=== PATIENT | female | born 1950 | race Caucasian/White ===

== ENCOUNTER → 2016-08-06 | Outpatient (CLI) | payer MEDICARE, MEDICAID ==
[~2016-08-06] MED LIST: ACCUNEB 0.0.63 MG/3 INH; AMOXIL500 MG PO; ASMANEX220 MCG INH; ASTELIN137 MCG/AC NAS; ATENOLOL50 MG PO; CAPOTEN25 MG PO; CEFTIN500 MG PO; CIPRO500 MG PO; CLARITIN10 MG PO; COUMADIN5 MG PO; FERROUS SULFAT325 M1 PO; FISH; FLAGYL500 MG PO; FLAX SEED OIL; Feosol300 MG PO; JANTOVEN3 MG PO; LOTEMAX 0.5% 1010 ML OPH; LOVASTATIN20 MG PO; MACROBID100 M1 PO; MEDROL DOSEPAK4 MG PO; MEVACOR20 MG PO; MOTRIN800 MG PO; NIACIN ER500 MG PO; PANTOPRAZOLE40 M1 PO; PRAVACHOL20 MG PO; PREDNISONE20 MG PO; PROAIR HFA0.09 MG/AC IH; PROAIR HFA0.09 MG/AC INH; PROCRIT20000 U/ML IJ; PROTONIX40 MG PO; PYRIDIUM200 MG PO; ROBITUSSIN AC 10 MG/ PO; ROBITUSSIN-AC480 ML PO; SYNTHROID,LEVO75 MCG PO; SYNTHROID0.075 MG PO; SYSTANE LUBRICAN5 ML OPH; TRILIPIX45 M1 PO; TYLENOL ARTHRI650 MG PO; VITAMIN C; VITAMIN D1000 IU PO; VITAMIN E400 I1 PO; Ventolin 02.5 MG/3 M INH; [UNRECOGNIZED DRUG - OTHER] OP
== END | disposition home or self-care (01) ==
LOC: CT 10:13
DX: R91.1 Solitary pulmonary nodule (principal); R06.02 Shortness of breath; Z87.891 Personal history of nicotine dependence; J44.9 Chronic obstructive pulmonary disease, unspecified

== ENCOUNTER → 2016-11-17 | Outpatient (CLI) | payer MEDICARE, MEDICAID ==
[2016-11-17 11:16] LABS: BASO % 0.6 % (0.0-1.0); HEMATOCRIT 29.5 % (37.0-47.0); HEMOGLOBIN 9.4 g/dl (12.0-16.0); LYMPH # 1.5 10*3/uL (1.3-4.4); LYMPH % 48.6 % (27.0-41.0); MEAN CELL VOLUME 90.8 fl (81.0-99.0); MEAN CORPUSCULAR HGB 28.9 pg (27.0-31.0); MEAN CORPUSCULAR HGB CONC 31.9 g/dl (33.0-37.0); MEAN PLATELET VOLUME 9.3 fl (9.6-12.3); MONO # 0.5 10*3/uL (0.1-1.0); MONO % 15.4 % (3.0-9.0); NEUT # 1.1 10*3/uL (2.3-7.9); NEUT % 35.4 % (47.0-73.0); PLATELET COUNT AUTOMATED 153 10*3/uL (130-400); RED BLOOD COUNT 3.25 10*6/uL (4.10-5.10); RED CELL DISTRI WIDTH 14.5 % (0-14.5); WHITE BLOOD COUNT 3.1 10*3/uL (4.8-10.8)
== END | disposition home or self-care (01) ==
LOC: LAB 10:39
PROVIDERS: Internal Medicine Hematology & Oncology
DX: D70.9 Neutropenia, unspecified (principal); D63.1 Anemia in chronic kidney disease

== ENCOUNTER → 2016-11-24 | Outpatient (CLI) | payer MEDICARE, MEDICAID ==
[2016-11-25 09:14] LABS: IMMUNOGLOBULIN IgE 002170 1 IU/mL (0-100)
== END | disposition home or self-care (01) ==
LOC: LAB 11:49
PROVIDERS: Internal Medicine Hematology & Oncology
DX: D83.8 Other common variable immunodeficiencies (principal)

== ENCOUNTER → 2016-12-09 | Outpatient (CLI) | payer MEDICARE, MEDICAID ==
[2016-12-09 09:07] LABS: BASO % 0.3 % (0.0-1.0); EOS % 0.3 % (1.0-4.0); HEMATOCRIT 30.4 % (37.0-47.0); HEMOGLOBIN 9.6 g/dl (12.0-16.0); LYMPH # 1.5 10*3/uL (1.3-4.4); LYMPH % 44.2 % (27.0-41.0); MEAN CELL VOLUME 89.9 fl (81.0-99.0); MEAN CORPUSCULAR HGB 28.4 pg (27.0-31.0); MEAN CORPUSCULAR HGB CONC 31.6 g/dl (33.0-37.0); MEAN PLATELET VOLUME 9.2 fl (9.6-12.3); MONO # 0.5 10*3/uL (0.1-1.0); MONO % 14.8 % (3.0-9.0); NEUT # 1.4 10*3/uL (2.3-7.9); NEUT % 40.1 % (47.0-73.0); PLATELET COUNT AUTOMATED 155 10*3/uL (130-400); RED BLOOD COUNT 3.38 10*6/uL (4.10-5.10); RED CELL DISTRI WIDTH 14.3 % (0-14.5); WHITE BLOOD COUNT 3.4 10*3/uL (4.8-10.8)
== END | disposition home or self-care (01) ==
LOC: LAB 08:55
PROVIDERS: Internal Medicine Hematology & Oncology
DX: D70.9 Neutropenia, unspecified (principal); D63.1 Anemia in chronic kidney disease

== ENCOUNTER → 2016-12-17 | Outpatient (CLI) | payer MEDICARE, MEDICAID ==
[2016-12-17 10:54] LABS: ALBUMIN 3.7 gm/dl (3.1-4.5); BILIRUBIN, TOTAL 0.2 mg/dl (0.2-1.0); MAGNESIUM 1.8 mg/dL (1.5-2.1); PHOSPHOROUS 3.2 mg/dL (2.5-4.9); POTASSIUM 4.4 mmol/L (3.5-5.1); TOTAL PROTEIN 8.9 gm/dL (6.4-8.2)
[2016-12-17 11:16] LABS: PTH INTACT 16.6 pg/mL (14.0-72.0); VITAMIN D, 25-HYDROXY 34.3 ng/mL (30-100)
[2016-12-17 11:18] LABS: URINE TP/CRE RATIO 0.2 (<0.21)
== END | disposition home or self-care (01) ==
LOC: LAB 09:59
PROVIDERS: Internal Medicine Nephrology
DX: I12.9 Hypertensive chronic kidney disease with stage 1 through stage 4 chronic kidney disease, or unspecified chronic kidney disease (principal); N18.3 Chronic kidney disease, stage 3 (moderate); E83.50 Unspecified disorder of calcium metabolism; D63.1 Anemia in chronic kidney disease; E83.30 Disorder of phosphorus metabolism, unspecified

== ENCOUNTER → 2017-01-02 | Outpatient (CLI) | payer MEDICARE, MEDICAID ==
[2017-01-02 10:43] LABS: BILIRUBIN NEGATIVE (NEGATIVE); BLOOD NEGATIVE (NEGATIVE); CLARITY CLEAR (CLEAR); COLOR YELLOW (YELLOW); GLUCOSE NEGATIVE (NEGATIVE); KETONE NEGATIVE (NEGATIVE); LEUKO ESTERASE TRACE (NEGATIVE); NITRITE NEGATIVE (NEGATIVE); PROTEIN NEGATIVE (NEGATIVE); UROBILINOGEN 0.2 E.U./dl (0.2-1.0)
[2017-01-02 11:11] LABS: BACTERIA 1+
== END | disposition home or self-care (01) ==
LOC: LAB 10:16
PROVIDERS: Internal Medicine Nephrology
DX: I12.9 Hypertensive chronic kidney disease with stage 1 through stage 4 chronic kidney disease, or unspecified chronic kidney disease (principal); N18.3 Chronic kidney disease, stage 3 (moderate); E21.1 Secondary hyperparathyroidism, not elsewhere classified; D63.1 Anemia in chronic kidney disease; Z79.899 Other long term (current) drug therapy

== ENCOUNTER 2017-01-23 18:03 | Emergency (ER) | payer MEDICARE, MEDICAID ==
[~2017-01-23] VITALS: Ht 149.8 cm; Wt 74.8 kg
[2017-01-23 19:38] LABS: BASO % 0.2 % (0.0-1.0); HEMATOCRIT 28.2 % (37.0-47.0); LYMPH % 16.5 % (27.0-41.0); MEAN CELL VOLUME 88.4 fl (81.0-99.0); MEAN CORPUSCULAR HGB 28.2 pg (27.0-31.0); MEAN CORPUSCULAR HGB CONC 31.9 g/dl (33.0-37.0); MEAN PLATELET VOLUME 8.5 fl (9.6-12.3); MONO # 0.6 10*3/uL (0.1-1.0); MONO % 10.1 % (3.0-9.0); NEUT # 4.6 10*3/uL (2.3-7.9); NEUT % 72.7 % (47.0-73.0); PLATELET COUNT AUTOMATED 152 10*3/uL (130-400); RED BLOOD COUNT 3.19 10*6/uL (4.10-5.10); RED CELL DISTRI WIDTH 13.7 % (0-14.5); WHITE BLOOD COUNT 6.3 10*3/uL (4.8-10.8)
[2017-01-23 19:55] LABS: ALBUMIN 3.3 gm/dl (3.1-4.5); BILIRUBIN, TOTAL 0.3 mg/dl (0.2-1.0); C-REACTIVE PROTEIN 15.2 MG/DL (0-0.3); TOTAL PROTEIN 8.8 gm/dL (6.4-8.2)
[2017-01-23 21:31] LABS: BILIRUBIN NEGATIVE (NEGATIVE); BLOOD NEGATIVE (NEGATIVE); CLARITY CLEAR (CLEAR); COLOR YELLOW (YELLOW); GLUCOSE NEGATIVE (NEGATIVE); KETONE NEGATIVE (NEGATIVE); LEUKO ESTERASE NEGATIVE (NEGATIVE); NITRITE NEGATIVE (NEGATIVE); PH 5.5 (5.0-9.0); PROTEIN NEGATIVE (NEGATIVE); UROBILINOGEN 0.2 E.U./dl (0.2-1.0)
[2017-01-23 21:40] LABS: BACTERIA 1+; URINE REFLEX COMMENT NO (NO)
[2017-01-23] MEDS ORDERED: Augmentin Xr 101 TER PO (22:07)
== END 2017-01-23 22:39 | disposition home or self-care (01) ==
LOC: ED 18:03
PROVIDERS: Physician Assistant
DX: K57.92 Diverticulitis of intestine, part unspecified, without perforation or abscess without bleeding (principal); Z88.1 Allergy status to other antibiotic agents; Z88.6 Allergy status to analgesic agent; Z79.01 Long term (current) use of anticoagulants; Z79.899 Other long term (current) drug therapy

== ENCOUNTER → 2017-02-04 | Outpatient (CLI) | payer MEDICARE, MEDICAID ==
[~2017-02-04] MED LIST changes: +Augmentin Xr 101 TER PO
== END | disposition home or self-care (01) ==
LOC: CT 02-03 11:00
DX: R91.8 Other nonspecific abnormal finding of lung field (principal)

== ENCOUNTER → 2017-03-03 | Outpatient (CLI) | payer MEDICARE, MEDICAID ==
[2017-03-03 09:32] LABS: BASO % 0.7 % (0.0-1.0); HEMATOCRIT 30.1 % (37.0-47.0); HEMOGLOBIN 9.2 g/dl (12.0-16.0); LYMPH # 1.5 10*3/uL (1.3-4.4); LYMPH % 48.5 % (27.0-41.0); MEAN CELL VOLUME 90.7 fl (81.0-99.0); MEAN CORPUSCULAR HGB 27.7 pg (27.0-31.0); MEAN CORPUSCULAR HGB CONC 30.6 g/dl (33.0-37.0); MEAN PLATELET VOLUME 9.1 fl (9.6-12.3); MONO # 0.4 10*3/uL (0.1-1.0); NEUT # 1.1 10*3/uL (2.3-7.9); NEUT % 35.5 % (47.0-73.0); PLATELET COUNT AUTOMATED 150 10*3/uL (130-400); RED BLOOD COUNT 3.32 10*6/uL (4.10-5.10); RED CELL DISTRI WIDTH 14.9 % (0-14.5); WHITE BLOOD COUNT 3.1 10*3/uL (4.8-10.8)
== END | disposition home or self-care (01) ==
LOC: LAB 09:08
PROVIDERS: Internal Medicine Hematology & Oncology
DX: D83.8 Other common variable immunodeficiencies (principal)

== ENCOUNTER 2017-03-09 21:11 | Emergency (ER) | payer MEDICARE, MEDICAID ==
[~2017-03-09] VITALS: Ht 160 cm
== END 2017-03-09 22:50 | disposition home or self-care (01) ==
LOC: ED 21:11
DX: M25.561 Pain in right knee (principal); Z88.1 Allergy status to other antibiotic agents; Z88.6 Allergy status to analgesic agent; Z79.899 Other long term (current) drug therapy; Z79.02 Long term (current) use of antithrombotics/antiplatelets

== ENCOUNTER → 2017-04-16 | Outpatient (CLI) | payer MEDICARE, MEDICAID ==
[2017-04-16 09:14] LABS: BILIRUBIN NEGATIVE (NEGATIVE); BLOOD NEGATIVE (NEGATIVE); CLARITY CLEAR (CLEAR); COLOR YELLOW (YELLOW); GLUCOSE NEGATIVE (NEGATIVE); KETONE NEGATIVE (NEGATIVE); LEUKO ESTERASE 1+ (NEGATIVE); NITRITE NEGATIVE (NEGATIVE); UROBILINOGEN 0.2 E.U./dl (0.2-1.0)
[2017-04-16 09:19] LABS: HEMATOCRIT 30.3 % (37.0-47.0); HEMOGLOBIN 9.6 g/dl (12.0-16.0); MEAN CELL VOLUME 91.5 fl (81.0-99.0); MEAN CORPUSCULAR HGB CONC 31.7 g/dl (33.0-37.0); PLATELET COUNT AUTOMATED 207 10*3/uL (130-400); RED BLOOD COUNT 3.31 10*6/uL (4.10-5.10); WHITE BLOOD COUNT 2.7 10*3/uL (4.8-10.8)
[2017-04-16 09:25] LABS: EPITHELIAL CELLS 0-2; WBC 0-2 wbc/hpf (0-5)
[2017-04-16 09:35] LABS: ALBUMIN 3.7 gm/dl (3.1-4.5); CREATININE 1.7 mg/dL (0.55-1.02); POTASSIUM 3.9 mmol/L (3.5-5.1); TOTAL PROTEIN 8.2 gm/dL (6.4-8.2)
[2017-04-16 09:44] LABS: TOTAL CELLS COUNTED 100 #CELLS
[2017-04-16 09:45] LABS: PLATELET SUFFICIENCY NORMAL (NORMAL)
[2017-04-17 08:15] LABS: COMPLEMENT C4 001834 25 mg/dL (14-44)
[2017-04-17 14:11] LABS: ANTI-DSDNA ANTIBODIES 096339 <1 IU/mL (0-9)
== END | disposition home or self-care (01) ==
LOC: LAB 08:20
PROVIDERS: Internal Medicine Rheumatology
DX: M35.00 Sjogren syndrome, unspecified (principal)

== ENCOUNTER → 2017-05-08 | Outpatient (CLI) | payer MEDICARE, MEDICAID ==
[2017-05-08 10:51] LABS: BASO % 0.9 % (0.0-1.0); EOS # 0.1 10*3/uL (0.0-0.4); EOS % 2.5 % (1.0-4.0); HEMATOCRIT 31.3 % (37.0-47.0); HEMOGLOBIN 9.9 g/dl (12.0-16.0); LYMPH # 1.3 10*3/uL (1.3-4.4); MEAN CELL VOLUME 89.9 fl (81.0-99.0); MEAN CORPUSCULAR HGB 28.4 pg (27.0-31.0); MEAN CORPUSCULAR HGB CONC 31.6 g/dl (33.0-37.0); MEAN PLATELET VOLUME 9.1 fl (9.6-12.3); MONO # 0.4 10*3/uL (0.1-1.0); MONO % 13.4 % (3.0-9.0); NEUT # 1.4 10*3/uL (2.3-7.9); NEUT % 41.9 % (47.0-73.0); PLATELET COUNT AUTOMATED 213 10*3/uL (130-400); RED BLOOD COUNT 3.48 10*6/uL (4.10-5.10); RED CELL DISTRI WIDTH 15.1 % (0-14.5); WHITE BLOOD COUNT 3.2 10*3/uL (4.8-10.8)
[2017-05-08 11:05] LABS: ALBUMIN 3.8 gm/dl (3.1-4.5); CREATININE 1.46 mg/dL (0.55-1.02); POTASSIUM 4.3 mmol/L (3.5-5.1)
== END | disposition home or self-care (01) ==
LOC: LAB 10:24
PROVIDERS: Internal Medicine
DX: E78.2 Mixed hyperlipidemia (principal); E03.9 Hypothyroidism, unspecified; E55.9 Vitamin D deficiency, unspecified

== ENCOUNTER → 2017-06-09 | Outpatient (CLI) | payer MEDICARE, MEDICAID ==
[2017-06-09 12:16] LABS: BASO % 1.1 % (0.0-1.0); EOS # 0.1 10*3/uL (0.0-0.4); EOS % 3.4 % (1.0-4.0); HEMATOCRIT 31.9 % (37.0-47.0); HEMOGLOBIN 9.8 g/dl (12.0-16.0); LYMPH # 1.7 10*3/uL (1.3-4.4); LYMPH % 48.6 % (27.0-41.0); MEAN CELL VOLUME 90.9 fl (81.0-99.0); MEAN CORPUSCULAR HGB 27.9 pg (27.0-31.0); MEAN CORPUSCULAR HGB CONC 30.7 g/dl (33.0-37.0); MEAN PLATELET VOLUME 8.8 fl (9.6-12.3); MONO # 0.5 10*3/uL (0.1-1.0); NEUT # 1.2 10*3/uL (2.3-7.9); NEUT % 32.9 % (47.0-73.0); PLATELET COUNT AUTOMATED 191 10*3/uL (130-400); RED BLOOD COUNT 3.51 10*6/uL (4.10-5.10); RED CELL DISTRI WIDTH 14.8 % (0-14.5); WHITE BLOOD COUNT 3.6 10*3/uL (4.8-10.8)
== END ==
LOC: LAB 11:58
PROVIDERS: Internal Medicine Hematology & Oncology
DX: D70.9 Neutropenia, unspecified (principal)

== ENCOUNTER → 2017-06-19 | Outpatient (CLI) | payer MEDICARE, MEDICAID ==
[2017-06-19 10:36] LABS: URINE CREATININE RANDOM 42.8 mg/dL
[2017-06-19 10:57] LABS: ALBUMIN 3.6 gm/dl (3.1-4.5); CREATININE 1.51 mg/dL (0.55-1.02); PHOSPHOROUS 3.6 mg/dL (2.5-4.9); POTASSIUM 4.1 mmol/L (3.5-5.1); TOTAL PROTEIN 8.4 gm/dL (6.4-8.2)
[2017-06-19 12:34] LABS: VITAMIN D, 25-HYDROXY 34.1 ng/mL (30-100)
[2017-06-19 12:35] LABS: PTH INTACT 14.3 pg/mL (14.0-72.0)
[2017-06-20 06:10] LABS: TOTAL PROTEIN, SERUM 7.7 g/dL (6.0-8.5)
== END | disposition home or self-care (01) ==
LOC: LAB 09:47
PROVIDERS: Internal Medicine Nephrology
DX: I12.9 Hypertensive chronic kidney disease with stage 1 through stage 4 chronic kidney disease, or unspecified chronic kidney disease (principal); N18.3 Chronic kidney disease, stage 3 (moderate); E21.1 Secondary hyperparathyroidism, not elsewhere classified; D63.1 Anemia in chronic kidney disease

== ENCOUNTER → 2017-07-09 | Outpatient (CLI) | payer MEDICARE, MEDICAID | END | disposition home or self-care (01) | LOC: ORTHO 01:49 | DX: S89.81XD Other specified injuries of right lower leg, subsequent encounter (principal); X58.XXXD Exposure to other specified factors, subsequent encounter ==

== ENCOUNTER → 2017-08-06 | Outpatient (CLI) | payer MEDICARE, MEDICAID | END | disposition home or self-care (01) | LOC: CT 09:45 | DX: R91.1 Solitary pulmonary nodule (principal) ==

== ENCOUNTER → 2017-08-19 | Outpatient (CLI) | payer MEDICARE, MEDICAID ==
[2017-08-19 12:52] LABS: HEMATOCRIT 31.5 % (37.0-47.0); HEMOGLOBIN 9.9 g/dl (12.0-16.0); LYMPH # 1.8 10*3/uL (1.3-4.4); LYMPH % 23.9 % (27.0-41.0); MEAN CELL VOLUME 91.3 fl (81.0-99.0); MEAN CORPUSCULAR HGB 28.7 pg (27.0-31.0); MEAN CORPUSCULAR HGB CONC 31.4 g/dl (33.0-37.0); MEAN PLATELET VOLUME 9.3 fl (9.6-12.3); MONO # 0.9 10*3/uL (0.1-1.0); MONO % 11.3 % (3.0-9.0); NEUT # 4.8 10*3/uL (2.3-7.9); NEUT % 64.3 % (47.0-73.0); PLATELET COUNT AUTOMATED 264 10*3/uL (130-400); RED BLOOD COUNT 3.45 10*6/uL (4.10-5.10); RED CELL DISTRI WIDTH 15.9 % (0-14.5); WHITE BLOOD COUNT 7.5 10*3/uL (4.8-10.8)
[2017-08-19 12:57] LABS: ALBUMIN 3.8 gm/dl (3.1-4.5); ALKALINE PHOSPHATASE 35 U/L (45-117); BUN 36 mg/dl (7-24); CHLORIDE 109 mmol/L (98-107); CREATININE 1.64 mg/dL (0.55-1.02); POTASSIUM 4.1 mmol/L (3.5-5.1); SGOT/AST 14 IU/L (3-35); SGPT/ALT 24 U/L (12-78); SODIUM 140 mmol/L (136-145); TOTAL PROTEIN 7.8 gm/dL (6.4-8.2)
[2017-08-20 08:13] LABS: COMPLEMENT C4 001834 19 mg/dL (14-44)
[2017-08-20 11:04] LABS: ANTI-DSDNA ANTIBODIES 096339 <1 IU/mL (0-9)
== END | disposition home or self-care (01) ==
LOC: LAB 12:04
PROVIDERS: Internal Medicine Rheumatology
DX: M35.00 Sjogren syndrome, unspecified (principal)

== ENCOUNTER → 2017-09-08 | Outpatient (CLI) | payer MEDICARE, MEDICAID ==
[2017-09-08 12:25] LABS: EOS # 0.1 10*3/uL (0.0-0.4); EOS % 3.4 % (1.0-4.0); HEMATOCRIT 30.5 % (37.0-47.0); HEMOGLOBIN 9.7 g/dl (12.0-16.0); LYMPH # 1.4 10*3/uL (1.3-4.4); LYMPH % 45.5 % (27.0-41.0); MEAN CELL VOLUME 91.6 fl (81.0-99.0); MEAN CORPUSCULAR HGB 29.1 pg (27.0-31.0); MEAN CORPUSCULAR HGB CONC 31.8 g/dl (33.0-37.0); MEAN PLATELET VOLUME 9.4 fl (9.6-12.3); MONO # 0.5 10*3/uL (0.1-1.0); MONO % 15.2 % (3.0-9.0); NEUT % 34.6 % (47.0-73.0); PLATELET COUNT AUTOMATED 219 10*3/uL (130-400); RED BLOOD COUNT 3.33 10*6/uL (4.10-5.10); RED CELL DISTRI WIDTH 14.6 % (0-14.5)
== END | disposition home or self-care (01) ==
LOC: LAB 11:46
PROVIDERS: Internal Medicine Hematology & Oncology
DX: D70.9 Neutropenia, unspecified (principal); D63.1 Anemia in chronic kidney disease

== ENCOUNTER → 2017-09-17 | Outpatient (CLI) | payer MEDICARE, MEDICAID | END | disposition home or self-care (01) | LOC: MAMMO 10:02 | DX: Z12.31 Encounter for screening mammogram for malignant neoplasm of breast (principal) ==

== ENCOUNTER → 2017-12-07 | Outpatient (CLI) | payer OTHER ==
[2017-12-07 11:29] LABS: EOS # 0.1 10*3/uL (0.0-0.4); EOS % 3.6 % (1.0-4.0); HEMATOCRIT 31.1 % (37.0-47.0); LYMPH # 1.3 10*3/uL (1.3-4.4); MEAN CELL VOLUME 87.9 fl (81.0-99.0); MEAN CORPUSCULAR HGB 28.2 pg (27.0-31.0); MEAN CORPUSCULAR HGB CONC 32.2 g/dl (33.0-37.0); MEAN PLATELET VOLUME 9.7 fl (9.6-12.3); MONO # 0.5 10*3/uL (0.1-1.0); MONO % 15.3 % (3.0-9.0); NEUT # 1.2 10*3/uL (2.3-7.9); NEUT % 39.1 % (47.0-73.0); PLATELET COUNT AUTOMATED 188 10*3/uL (130-400); RED BLOOD COUNT 3.54 10*6/uL (4.10-5.10); RED CELL DISTRI WIDTH 15.4 % (0-14.5); WHITE BLOOD COUNT 3.1 10*3/uL (4.8-10.8)
[2017-12-07 13:45] LABS: ALBUMIN 3.6 gm/dl (3.1-4.5); CREATININE 1.18 mg/dL (0.55-1.02); POTASSIUM 4.2 mmol/L (3.5-5.1); TOTAL PROTEIN 8.2 gm/dL (6.4-8.2)
[2017-12-07 14:03] LABS: VITAMIN D, 25-HYDROXY 45.4 ng/mL (30-100)
== END | disposition home or self-care (01) ==
LOC: LAB 11:05
PROVIDERS: Internal Medicine
DX: E78.2 Mixed hyperlipidemia (principal); N18.4 Chronic kidney disease, stage 4 (severe); E53.8 Deficiency of other specified B group vitamins; E03.9 Hypothyroidism, unspecified

== ENCOUNTER → 2017-12-23 | Outpatient (CLI) | payer OTHER ==
[2017-12-23 12:18] LABS: ALBUMIN 3.7 gm/dl (3.1-4.5); CREATININE 1.31 mg/dL (0.55-1.02); PHOSPHOROUS 2.9 mg/dL (2.5-4.9); POTASSIUM 4.2 mmol/L (3.5-5.1); TOTAL PROTEIN 8.4 gm/dL (6.4-8.2)
[2017-12-23 13:21] LABS: VITAMIN D, 25-HYDROXY 52.3 ng/mL (30-100)
[2017-12-23 13:22] LABS: PTH INTACT 11.5 pg/mL (14.0-72.0)
== END | disposition home or self-care (01) ==
LOC: LAB 11:13
PROVIDERS: Internal Medicine Nephrology
DX: I12.9 Hypertensive chronic kidney disease with stage 1 through stage 4 chronic kidney disease, or unspecified chronic kidney disease (principal); N18.3 Chronic kidney disease, stage 3 (moderate); E21.1 Secondary hyperparathyroidism, not elsewhere classified; D63.1 Anemia in chronic kidney disease

== ENCOUNTER → 2018-01-14 | Outpatient (CLI) | payer OTHER ==
[2018-01-14 15:37] LABS: BILIRUBIN NEGATIVE (NEGATIVE); BLOOD NEGATIVE (NEGATIVE); CLARITY CLEAR (CLEAR); COLOR YELLOW (YELLOW); GLUCOSE NEGATIVE (NEGATIVE); KETONE NEGATIVE (NEGATIVE); LEUKO ESTERASE 1+ (NEGATIVE); NITRITE NEGATIVE (NEGATIVE); UROBILINOGEN 0.2 E.U./dl (0.2-1.0)
[2018-01-14 15:58] LABS: RBC 0-2 rbc/hpf (0-2)
[2018-01-14 15:59] LABS: BACTERIA 2+; MUCOUS TRACE
== END | disposition home or self-care (01) ==
LOC: ORTHO 01:04 → LAB 01:04 → ORTHO 20:59
PROVIDERS: Internal Medicine Nephrology
DX: N18.3 Chronic kidney disease, stage 3 (moderate) (principal); N39.0 Urinary tract infection, site not specified

== ENCOUNTER → 2018-05-24 | Outpatient (CLI) | payer OTHER ==
[2018-05-24 13:26] LABS: URINE CREATININE RANDOM 75.4 mg/dL
[2018-05-24 13:38] LABS: BUN 20 mg/dl (7-24); CHLORIDE 109 mmol/L (98-107); POTASSIUM 4.1 mmol/L (3.5-5.1); SODIUM 137 mmol/L (136-145)
[2018-05-24 13:40] LABS: CREATININE 1.05 mg/dL (0.55-1.02); PHOSPHOROUS 2.6 mg/dL (2.5-4.9)
[2018-05-24 13:44] LABS: PTH INTACT 17.6 pg/mL (18.5-88.0); VITAMIN D, 25-HYDROXY 42.9 ng/mL (30-100)
== END | disposition home or self-care (01) ==
LOC: LAB 12:32
PROVIDERS: Internal Medicine Nephrology
DX: I12.9 Hypertensive chronic kidney disease with stage 1 through stage 4 chronic kidney disease, or unspecified chronic kidney disease (principal); N18.3 Chronic kidney disease, stage 3 (moderate); E21.1 Secondary hyperparathyroidism, not elsewhere classified; D63.1 Anemia in chronic kidney disease

== ENCOUNTER → 2018-08-06 | Outpatient (CLI) | payer OTHER ==
[~2018-08-06] MED LIST changes: +ARTHRITIS PAIN650 M3 PO; +CRANBERRY500 M3 PO; +CYCLOBENZAPRINE5 M3 PO; +FLOVENT HFA12 G1 INH; +IRON325 M1 PO; -JANTOVEN3 MG PO; +JANTOVEN4 M1 PO; +PENNSAID112 GM T; +RESTASIS1 EACH OP; +VENTOLIN 02.5 MG/3 M INH; +VITAMIN D31000 UNI1 PO
== END | disposition home or self-care (01) ==
LOC: CT 11:00
DX: R91.1 Solitary pulmonary nodule (principal); J84.10 Pulmonary fibrosis, unspecified; I10 Essential (primary) hypertension; J45.909 Unspecified asthma, uncomplicated

== ENCOUNTER 2018-10-05 17:12 | Inpatient (IN) | payer OTHER ==
[~2018-10-05] VITALS: Ht 149.8 cm; Wt 71.2 kg
--- NOTE | ~2018-10-05 | EKG ---
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
--- NOTE | ~2018-10-05 | PR ---
[place], [place] PROGRESS NOTE NAME: FANI SHAFER UNIT #: [id number] ROOM: 530 DOCTOR: MIKEY MARC MD BIRTHDATE: [birth year] DOS: 10/12/2018 PULMONARY PROGRESS NOTE SUBJECTIVE: The patient has been showing improvement in the diarrhea. Coughing has improved significantly with reduction of the chest congestion. Denies symptoms of fever or chills or any hemoptysis. PHYSICAL EXAMINATION: VITAL SIGNS: Normal temperature, respiratory rate 18, heart rate 98, blood pressure 130/53. The pulse oxygen saturation was recorded as 95% saturation on room air. HEENT: Shows head was atraumatic, eyes nonicterus. NECK: Supple. CARDIOVASCULAR: S1 and S2 audible. LUNGS: The patient was noted without any wheeze or crackles at the present time. Lungs were noted quite clear. ABDOMEN: Soft, nontender. Bowel sounds present. EXTREMITIES: No acute change. LABORATORY DATA: BMP this morning was noted as BUN 50, creatinine 1.24. CBC this morning, WBC count 3.4, hemoglobin 7.4. IMPRESSION: 1. The patient with acute bronchitis predominantly with gram-negative infection with Klebsiella, currently treated with aztreonam and Bactrim. 2. Positive colonization with methicillin-resistant Staphylococcus aureus. PLAN OF MANAGEMENT: Await for the next 24 hours for IV antibiotics, then switch the patient to oral Bactrim and discharge home with close clinical monitoring of the patient's response to current treatment. The patient is responding to treatment, currently showing improvement in the acute bronchitis, exacerbation of COPD, and bronchial asthma. [place], [place] PROGRESS NOTE NAME: FANI SHAFER UNIT #: [id number] ROOM: 530 DOCTOR: MIKEY MARC MD BIRTHDATE: [birth year] MIKEY LAWRENCE MD CM:PNTRANS 1438 MIKEY NATION MD 10/13/18 0226 interface
--- NOTE | ~2018-10-05 | PR ---
[place], [place] PROGRESS NOTE NAME: FANI SHAFER UNIT #: [id number] ROOM: 507 DOCTOR: MIKEY MARC MD BIRTHDATE: [birth year] DOS: 10/10/2018 PULMONARY PROGRESS NOTE SUBJECTIVE: The patient is complaining of diarrhea in the last 24 hours. Respiratory symptoms are resolving with improvement in the cough and shortness breath and others was continued. Denies any symptoms of fever or chills. REVIEW OF SYSTEMS: Completed, otherwise noted as negative. OBJECTIVE: VITAL SIGNS: Normal temperature, respiratory rate 20, heart rate 97, blood pressure 126/52. Pulse ox saturation on room air 95% saturation recorded. HEENT: Shows head was atraumatic. Eyes nonicterus. NECK: Supple. CARDIOVASCULAR SYSTEM: S1, S2 audible. LUNGS: The patient was noted without any crackles. Mild expiratory wheezing. ABDOMEN: Soft, nontender. Bowel sounds present. EXTREMITIES: Without any edema. MUSCULOSKELETAL: Without any acute deformities. CENTRAL NERVOUS SYSTEM: Cranial nerves 2-12 intact. VISIBLE SKIN: No lesions or rashes. LABORATORY DATA: Cultures of the sputum was showing heavy growth of Gram-negative bacilli, pending identification and sensitivities. The INR noted as 1.6. CBC: WBC count 2.8, hemoglobin 7.3, hematocrit 23.2, platelet count 196,000. BMP this morning as BUN 13, creatinine 1.29. IMPRESSION: 1. Gram-negative bacilli, acute tracheobronchitis was noted. 2. Diarrhea, etiology is unclear. 3. Chronic kidney disease, stage 3. 4. The patient has history of allergy to multiple antibiotics. PLAN OF MANAGEMENT: The patient will be started on the Azactam 2 gram b.i.d. until the culture results were noted. Continue Bactrim adjustment in antibiotic after final culture results. Hydration will be continued and considered because of current diarrhea. Assessment of diarrhea as well with further change in treatment will be made accordingly. [place], [place] PROGRESS NOTE NAME: FANI SHAFER UNIT #: [id number] ROOM: 507 DOCTOR: MIKEY MARC MD BIRTHDATE: [birth year] MIKEY LAWRENCE MD CM:PNTRANS [id number] MIKEY NATION MD 10/11/182 interface
--- NOTE | ~2018-10-05 | PR ---
[place], [place] PROGRESS NOTE [id number] UNIT #: [id number] ROOM: 530 DOCTOR: HOWARD NATION MD,MIKEY BIRTHDATE: [birth year] DOS: 10/11/2018 PULMONARY PROGRESS NOTE SUBJECTIVE: The patient is noted comfortable at this time, resting on the bed. She continues with antibiotics on Bactrim and also receiving other broad spectrum intravenous antibiotic that she was started yesterday on intravenous Azactam. She was noted low grade fever yesterday at 100.2 degrees Fahrenheit. She has not been noted symptoms of fever or chills. Coughing has been noted somewhat decreased from yesterday as the patient was started on IV antibiotics. She has not been noted symptoms of hemoptysis or chest pain. Denies symptoms of nausea or vomiting. The diarrhea is noted decreased from yesterday. Denies symptoms of hematochezia or hematemesis or melena. Remaining systems were reviewed with the patient, they were noted all negative. PHYSICAL EXAMINATION: GENERAL: She was comfortably resting on the bed this morning, noted less coughing as noted previously all the time. VITAL SIGNS: Recorded as temperature of 100.2 degrees Fahrenheit, respiratory rate 18-20, heart rate 81-108, blood pressure 58/98 to 121/51. Pulse oxygen saturation was recorded on room air as 97% saturation. HEENT: Shows head was atraumatic, eyes nonicterus. NECK: Supple. CARDIOVASCULAR: S1 and S2 audible. LUNGS: The patient was noted without any crackles. Expiratory wheezing was noted scattered. ABDOMEN: Soft, nontender. Bowel sounds present. EXTREMITIES: No acute change. LABORATORY DATA: Culture of the sputum was noted with light growth of MRSA, most likely colonization; however, heavy growth of gram-negative bacilli noted and Klebsiella pneumoniae, which were noted non-ESBL species. BMP with BUN of 15 and creatinine 1.31 recorded. CBC this morning, WBC count 2.6, hemoglobin 7.3, hematocrit 23.2, platelet count 209,000. IMPRESSION: 1. Acute pneumonia would be suggested with Klebsiella with methicillin-resistant Staphylococcus aureus colonization. 2. Acute tracheobronchitis. 3. Acute exacerbation of bronchial asthma with history of multiple allergies. 4. Leukopenia and anemia still remain persistent. 5. Diarrhea seems to be resolved. PLAN OF MANAGEMENT: Discontinuation of vancomycin, continue oral Bactrim at this time. Continuation of intravenous Azactam. Discontinue all other antibiotics. Supportive therapy, plan of management, other care plan and treatment. Usual care with additional treatment changes will be ordered based on progression of the illness. Obtain a chest x-ray today to see any overt development of a new pulmonary infiltration. The assessment and management was discussed with Dr. Gary No, who is the attending for today's visit. [place], [place] PROGRESS NOTE NAME: HOLLISFANI Kingsley UNIT #: [id number] ROOM: [facility] DOCTOR: MIKEY MARC MD BIRTHDATE: [birth year] MIKEY LAWRENCE MD CM:CAORLINE [id number] MIKEY NATION MD 10/12/18 0412 interface
--- NOTE | ~2018-10-05 | PR ---
[place], [place] PROGRESS NOTE NAME: FANI SHAFER UNIT #: [id number] ROOM: 530 DOCTOR: HOWARD NATION MD,MIKEY BIRTHDATE: [birth year] DOS: 10/13/2018 PULMONARY PROGRESS NOTE SUBJECTIVE: The patient is noted comfortable at this time, without any acute distress, resting comfortably, and was planned for blood transfusion to be given today. She denies symptoms of acute shortness of breath at rest. Denies symptoms of chest pain or hemoptysis reported by the patient. OBJECTIVE: VITAL SIGNS: Which were recorded show the temperature noted as normal, respiratory rate recorded as 18, heart rate of 98, blood pressure 137/95. Pulse oxygen saturation recorded as 97% on room air. HEENT: Examination shows head is atraumatic. Eyes nonicterus. NECK: Supple. CARDIOVASCULAR: S1 and S2 audible. LUNGS: Without any wheeze or crackles today. ABDOMEN: Soft, nontender. Bowel sounds present. EXTREMITIES: No acute change. IMPRESSION: 1. Resolving acute tracheobronchitis gradually and progressively at the present time, responding to treatment. 2. Leukopenia, most likely secondary to current acute infection. The patient is noted with a predominant infection with Gram-negative infection with possible colonization with MRSA. PLAN OF MANAGEMENT: No changes from the pulmonary standpoint. Continue current therapy plan of management, blood transfusion per primary care attending because of anemia and hematocrit was noted at 21.6. Other plan of therapy to be continued as in progress. Supportive care. MIKEY LAWRENCE MD CM:PNTRANS [phone] MIKEY NATION MD 10/13/18 2333 interface
--- NOTE | ~2018-10-05 | CON ---
[place], [place] REPORT OF CONSULTATION NAME: FANI SHAFER [facility] #: [id number] UNIT #: [id number] ROOM: 530 DOCTOR: MIKEY MARC MD BIRTHDATE: [birth year] DOS: 10/08/2018 PULMONARY CONSULTATION, EVALUATION, AND MANAGEMENT CONSULTATION REQUESTED BY: Hospitalist service. REASON FOR CONSULTATION: Assessment of symptoms of shortness of breath and cough. HISTORY OF PRESENT ILLNESS: This is a 68-year-old white female patient who has been admitted to the hospital under the hospitalist services on 10/05/2018. The patient presented to the office as she had been reported with increased symptoms of nausea and vomiting. She has been complaining of nonproductive cough as well. The patient was diagnosed with influenza infection and has been receiving the management of that with antiviral treatment. The patient has been receiving the treatment and has noted progressive respiratory symptoms and illness. She was later noted with symptoms of shortness of breath and wheezing as well. There were no symptoms of chest pain reported by the patient. The patient had been currently admitted to the hospital for further care. She was denying any symptoms of chest pain or any hemoptysis. Denies symptoms of hemoptysis. REVIEW OF SYSTEMS: CONSTITUTIONAL SYMPTOMS: Fatigue and tiredness noted without any symptoms of fever or chills at this time. EYES: Denies any burning, redness or discharge. EARS, NOSE, AND THROAT: Denies sore throat, hoarseness, otalgia, postnasal drainage. CARDIOVASCULAR: Denies angina pain, edema or pain of the lower extremities. GASTROINTESTINAL: Symptoms of dysphagia, nausea, vomiting, diarrhea this morning of assessment. Noted symptoms of nausea and vomiting on admission, seemed to be resolved. GENITOURINARY: Denies dysuria, suprapubic pain, or hematuria. MUSCULOSKELETAL: No acute joint pain, redness, or tenderness. SKIN: Denies lesions or rashes. CENTRAL NERVOUS SYSTEM: No dizziness, headache, diplopia or syncopal episodes or tingling sensation of the extremities. Remaining systems were reviewed, they were noted all negative. PAST MEDICAL HISTORY: 1. Anemia of chronic disease. 2. Uncomplicated oehjowam-xp-[id number] persistent bronchial asthma. 3. Deep venous thrombosis. 4. Allergic rhinitis. 5. Bilateral pulmonary nodule noted with low-grade SUV since 04/2016. 6. Hypothyroidism. 7. Gastroesophageal reflux. 8. General anxiety disorder. 9. Allergy to multiple medications. 10. Hypothyroidism. [place], [place] REPORT OF CONSULTATION NAME: FANI SHAFER UNIT #: [id number] ROOM: [facility] DOCTOR: HOWARD NATION MD,MIKEY BIRTHDATE: [birth year] 11. Past history of deep venous thrombosis. 12. Hyperlipidemia. SOCIAL HISTORY: The patient is , has one child, lives at home. Denies any history of alcohol or illicit drug use. Tobacco use from the age of [age] years old, 2 packs of cigarettes per day until 1979 reported. PAST SURGICAL HISTORY: Noted cataract extraction and lens implantation bilaterally. FAMILY HISTORY: The patient's father history was unknown. Mother at the age of 8383 years old, complications of leukemia. MEDICATIONS: Listed for the patient at admission were Tylenol Arthritis, Ventolin nebulizer, vitamin D, Flexeril, Restasis eyedrops, ferrous sulfate, Flovent, levothyroxine, lovastatin, Protonix and Coumadin. Current medications include: Cepacol lozenges, Protonix, simvastatin, Coumadin, albuterol sulfate with the nebulizer, Flexeril, vitamin D, ferrous sulfate, fenofibrate, Pulmicort Respules, levothyroxine, Mucinex, IV Zosyn, vancomycin, and other p.r.n. medications. DRUG ALLERGIES: REPORTED CODEINE, HYDROCODONE, DOXYCYCLINE, ZITHROMAX, CEFTIN, CIPRO, LEVOFLOXACIN AND CEFEPIME. PHYSICAL EXAMINATION: GENERAL: This is a 68-year-old female patient who has been currently lying comfortably on the bed this morning. VITAL SIGNS: Recorded by the nursing staff as height of 4 feet 11 inches, weight 154 pounds, BMI 30. Vital signs of the patient, which are recorded shows normal temperature, respiratory was recorded as 18-20, heart rate of 92-100, blood pressure 122/46-126/55. The pulse oxygen saturation was recorded at rest on room air as 98% saturation. HEENT: Examination shows head was atraumatic. Eyes nonicterus. NECK: Supple. CARDIOVASCULAR: S1, S2 is audible. LUNGS: The patient noted with occasional wheezing, no crackles. ABDOMEN: Soft, flat, nontender, bowel sounds present. EXTREMITIES: The patient was noted without any acute edema, clubbing or cyanosis. MUSCULOSKELETAL: Noted without any acute deformities. CENTRAL NERVOUS SYSTEM: Cranial nerves 2-12 intact. LABORATORY DATA: Influenza A and B nasal washing antigen in the hospital testing was negative. Lactic acid was 1.2. PT/INR was 3.4 on admission, which is noted in the high therapeutic range. CBC on admission of 10/05/2018, WBC count 4.2, hemoglobin of 28.6, platelet count was normal, differential normal. CMP of the patient on admission, BUN 33, creatinine 1.71, glucose 121, potassium 3.3, CO2 was 17. PT/INR on 10/06/2018 was normal. CBC of this morning, WBC count 3.2, hemoglobin 7.1, hematocrit 22.3, platelet count 195,000. PT/INR this morning was 2.3, which is therapeutic. BMP this morning, BUN normal, creatinine [place], [place] REPORT OF CONSULTATION NAME: FANI SHAFER UNIT #: [id number] ROOM: [facility] DOCTOR: HAILEY MARC MDM BIRTHDATE: [birth year] was normal, CO2 was 20. DIAGNOSTIC STUDIES: The review of the radiology data for this patient: Chest x-ray from 10/05/2018 does not show any acute visible pulmonary abnormalities. Chest x-ray repeated yesterday shows small basilar area of atelectasis was noted without any visible pulmonary nodules. She had a CT scan of the chest that was done without contrast on 10/07/2018 that was personally reviewed. Chronic finding noted including the ground glass opacity in the superior segment of the left lower lobe. A new finding noted as 1.2 x 2 cm approximately size for this patient, localized density in the right lower lobe with another small scattered centrilobular lymph nodes surrounding the area suggestive of acute pulmonary infection. IMPRESSION: 1. The patient who has been currently admitted to the hospital noted with symptoms of acute nausea, vomiting resulting in acute kidney injury and acute pneumonia very likely for the patient could be viral in origin and/or bacterial in the left lower lobe after recent viral syndrome of influenza infection. 2. The patient with bronchial asthma, does not seem to have an acute exacerbation. 3. Chronic pulmonary nodule as well with the recent nodular density most likely noninfectious in origin. Malignant process certainly needs to be excluded. 4. The patient with leukopenia with the bone marrow dysfunction or the acute infection, may be resulting in leukopenia. 5. Anemia was also noted gradually progressing, rule out gastrointestinal bleeding as well since hospitalization, her hematocrit has been gradually decreased noted at 22.3 this morning. 6. Past history of nicotine use. 7. History of allergic rhinitis. 8. Chronic anticoagulation, which has been noted with past history of thromboembolism. There was no evidence of active thromboembolism at this time. 9. History of ALLERGY TO THE MULTIPLE ANTIBIOTICS. 10. Acute kidney injury secondary to acute dehydration with intravascular volume depletion and hypokalemia, all resolved. PLAN OF MANAGEMENT: The patient would be continued on bronchodilators at this time. Oxygen supplementation if necessary to maintain a pulse oxygen of 92% or greater. Obtain the sputum for Gram stain and culture. Volume of the leukopenia and assessment of current anemia would be advised from the GI services. The antibiotic of the patient will be started as Bactrim-DS orally at this time. Obtain the sputum for Gram stain and culture if the patient is able to expectorate any sputum. Monitor the leukopenia of the patient closely. Other changes in treatment will be made based on the progression of the illness. Upon discharge of the patient, follow up short-term CT scan of the chest would be considered to document current nodular opacity of the left lower lobe. Usual care, other therapy, plan of management of the patient will be continued as in progress. Thank you for allowing me to participate in the care of this patient. [place], [place] REPORT OF CONSULTATION NAME: HOLLISFANI D UNIT #: [id number] ROOM: 530 DOCTOR: MIKEY MARC MD BIRTHDATE: [birth year] MIKEY LAWRENCE MD CM:CONSTR:REPORT OF CONSULTATION 1318 10/22/18 0811 interface
--- NOTE | ~2018-10-05 | PR ---
[place], [place] PROGRESS NOTE NAME: FANI SHAFER UNIT #: [id number] ROOM: 507 DOCTOR: MIKEY MARC MD BIRTHDATE: [birth year] DOS: 10/09/2018 PULMONARY PROGRESS NOTE SUBJECTIVE: The patient appeared to be comfortable at this time with improvement noted continued gradually wheezing and symptoms of shortness of breath. There are no symptoms of chest pain, fever or chills. The patient does not have symptoms of hemoptysis, general weakness and fatigue was noted. OBJECTIVE: VITAL SIGNS: For the patient this morning, the temperature noted normal, respirations 20, heart rate 86, blood pressure 122/53. The pulse oxygen on room air at rest 100% saturation recorded. HEENT: Examination shows head was atraumatic. Eyes nonicterus. NECK: Supple. CARDIOVASCULAR: S1, S2 is audible. LUNGS: The patient was noted with mild expiratory wheezing improving previous examination. There were no crackles. ABDOMEN: Soft, nontender. Bowel sounds present. EXTREMITIES: No new change. LABORATORY DATA: BMP, the labs today, BUN 13, creatinine 1.25. CBC of the patient this morning was noted as hematocrit of 23.3, hemoglobin 7.5, WBC count 3.1. Normal platelets. IMPRESSION: 1. Persistent leukopenia. The patient with anemia as well. 2. Resolving acute exacerbation of bronchial asthma and acute bacterial bronchitis. The PT/INR today was noted elevated at 3.8 most likely due to drug interaction. PLAN OF MANAGEMENT: Continuation of the oxygen supplementation, bronchodilators. The patient was planned for blood transfusion today because of the anemia ordered by the primary care attending. At this time, no change in treatment will be necessary. Discharge planning could be started either today or the next 24 hours, depends on the oral clinical stability. [place], [place] PROGRESS NOTE NAME: FANI SHAFER UNIT #: [id number] ROOM: 507 DOCTOR: MIKEY MARC MD BIRTHDATE: [birth year] MIKEY LAWRENCE MD CM:PNTRANS [phone] MIKEY NATION MD 10/09/181925 interface
[~2018-10-05 17:12] MED LIST changes: -ARTHRITIS PAIN650 M3 PO; -CRANBERRY500 M3 PO; -CYCLOBENZAPRINE5 M3 PO; -FLOVENT HFA12 G1 INH; -IRON325 M1 PO; -PENNSAID112 GM T; -RESTASIS1 EACH OP; -VENTOLIN 02.5 MG/3 M INH; -VITAMIN D31000 UNI1 PO
[2018-10-05 17:14] VITALS: BP 144/69
[2018-10-05 19:10] LABS: HEMATOCRIT 28.6 % (37.0-47.0); HEMOGLOBIN 9.5 g/dl (12.0-16.0); MEAN CELL VOLUME 87.2 fl (81.0-99.0); MEAN CORPUSCULAR HGB CONC 33.2 g/dl (33.0-37.0); MEAN PLATELET VOLUME 9.6 fl (9.6-12.3); PLATELET COUNT AUTOMATED 163 10*3/uL (130-400); RED BLOOD COUNT 3.28 10*6/uL (4.10-5.10); RED CELL DISTRI WIDTH 14.3 % (0-14.5); WHITE BLOOD COUNT 4.2 10*3/uL (4.8-10.8)
[2018-10-05 19:23] LABS: ACT PARTIAL THROMBO TIME 39.8 SECONDS (20.8-31.5); INTERNATIONAL NORM RATIO 3.4 (2.0-3.5)
[2018-10-05 19:32] LABS: BASOPHILS 1 % (0-1); PLATELET SUFFICIENCY NORMAL (NORMAL); TOTAL CELLS COUNTED 100 #CELLS
[2018-10-05 19:34] LABS: ALBUMIN 3.7 gm/dl (3.1-4.5); ALKALINE PHOSPHATASE 92 U/L (45-117); BUN 33 mg/dl (7-24); CHLORIDE 108 mmol/L (98-107); CREATININE 1.71 mg/dL (0.55-1.02); LIPASE 244 U/L (73-393); POTASSIUM 3.3 mmol/L (3.5-5.1); SGOT/AST 18 IU/L (3-35); SGPT/ALT 19 U/L (12-78); SODIUM 138 mmol/L (136-145); TOTAL PROTEIN 8.8 gm/dL (6.4-8.2)
[2018-10-05 19:36] LABS: TROPONIN I < 0.015 ng/ml (<0.045)
[2018-10-05 21:00] VITALS: BP 144/64
[2018-10-05 22:36] VITALS: BP 144/64
[2018-10-06] MEDS ORDERED: CRANBERRY500 M3 PO (03:07)
[2018-10-06] MEDS ORDERED: FLOVENT HFA12 G1 INH (03:19)
[2018-10-06] MEDS ORDERED: RESTASIS1 EACH OP (03:20)
[2018-10-06] MEDS ORDERED: IRON325 M1 PO (03:21)
[2018-10-06] MEDS ORDERED: PENNSAID112 GM T (03:22)
[2018-10-06] MEDS ORDERED: VITAMIN D31000 UNI1 PO (03:23)
[2018-10-06] MEDS ORDERED: CYCLOBENZAPRINE5 M3 PO (03:25)
[2018-10-06] MEDS ORDERED: VENTOLIN 02.5 MG/3 M INH (03:28)
[2018-10-06] MEDS ORDERED: ARTHRITIS PAIN650 M3 PO (03:30)
[2018-10-06 06:36] LABS: HEMATOCRIT 24.7 % (37.0-47.0); HEMOGLOBIN 7.9 g/dl (12.0-16.0); MEAN CELL VOLUME 88.2 fl (81.0-99.0); MEAN CORPUSCULAR HGB 28.2 pg (27.0-31.0); MEAN PLATELET VOLUME 10.4 fl (9.6-12.3); PLATELET COUNT AUTOMATED 151 10*3/uL (130-400); RED CELL DISTRI WIDTH 14.4 % (0-14.5); WHITE BLOOD COUNT 3.5 10*3/uL (4.8-10.8)
[2018-10-06 06:41] LABS: CREATININE 1.16 mg/dL (0.55-1.02); PHOSPHOROUS 3.5 mg/dL (2.5-4.9); POTASSIUM 3.4 mmol/L (3.5-5.1)
[2018-10-06 08:00] VITALS: BP 109/80
[2018-10-06 08:39] LABS: PLATELET SUFFICIENCY NORMAL (NORMAL); TOTAL CELLS COUNTED 100 #CELLS
[2018-10-06 12:00] VITALS: BP 132/62
[2018-10-06 15:11] VITALS: BP 130/50
[2018-10-06 20:00] VITALS: BP 100/48
[2018-10-07] VITALS: BP 118/41
[2018-10-07 06:29] LABS: BASO % 0.3 % (0.0-1.0); EOS % 1.1 % (1.0-4.0); HEMATOCRIT 24.2 % (37.0-47.0); HEMOGLOBIN 7.6 g/dl (12.0-16.0); LYMPH # 1.1 10*3/uL (1.3-4.4); MEAN CORPUSCULAR HGB 27.9 pg (27.0-31.0); MEAN CORPUSCULAR HGB CONC 31.4 g/dl (33.0-37.0); MEAN PLATELET VOLUME 10.1 fl (9.6-12.3); MONO # 0.3 10*3/uL (0.1-1.0); MONO % 9.4 % (3.0-9.0); NEUT # 2.1 10*3/uL (2.3-7.9); NEUT % 58.9 % (47.0-73.0); PLATELET COUNT AUTOMATED 160 10*3/uL (130-400); RED BLOOD COUNT 2.72 10*6/uL (4.10-5.10); RED CELL DISTRI WIDTH 15.1 % (0-14.5); WHITE BLOOD COUNT 3.6 10*3/uL (4.8-10.8)
[2018-10-07 06:32] LABS: CHLORIDE 118 mmol/L (98-107); CREATININE 0.92 mg/dL (0.55-1.02); POTASSIUM 3.7 mmol/L (3.5-5.1); SODIUM 143 mmol/L (136-145)
[2018-10-07 06:34] LABS: BUN 16 mg/dl (7-24)
[2018-10-07 08:00] VITALS: BP 136/60
[2018-10-07 12:00] VITALS: BP 130/57
[2018-10-07 16:00] VITALS: BP 118/50
[2018-10-07 20:00] VITALS: BP 126/55
[2018-10-08] VITALS: BP 122/46
[2018-10-08 06:48] LABS: BASO % 0.3 % (0.0-1.0); EOS # 0.1 10*3/uL (0.0-0.4); EOS % 2.2 % (1.0-4.0); HEMATOCRIT 22.3 % (37.0-47.0); HEMOGLOBIN 7.1 g/dl (12.0-16.0); LYMPH # 0.9 10*3/uL (1.3-4.4); LYMPH % 29.2 % (27.0-41.0); MEAN CELL VOLUME 88.8 fl (81.0-99.0); MEAN CORPUSCULAR HGB 28.3 pg (27.0-31.0); MEAN CORPUSCULAR HGB CONC 31.8 g/dl (33.0-37.0); MEAN PLATELET VOLUME 9.8 fl (9.6-12.3); MONO # 0.4 10*3/uL (0.1-1.0); MONO % 11.5 % (3.0-9.0); NEUT # 1.8 10*3/uL (2.3-7.9); NEUT % 56.5 % (47.0-73.0); PLATELET COUNT AUTOMATED 195 10*3/uL (130-400); RED BLOOD COUNT 2.51 10*6/uL (4.10-5.10); WHITE BLOOD COUNT 3.2 10*3/uL (4.8-10.8)
[2018-10-08 07:11] LABS: INTERNATIONAL NORM RATIO 2.3 (2.0-3.5)
[2018-10-08 07:18] LABS: BUN 13 mg/dl (7-24); CHLORIDE 119 mmol/L (98-107); CREATININE 1.03 mg/dL (0.55-1.02); POTASSIUM 3.7 mmol/L (3.5-5.1); SODIUM 144 mmol/L (136-145)
[2018-10-08 08:00] VITALS: BP 127/49
[2018-10-08 12:00] VITALS: BP 127/63
[2018-10-08 16:00] VITALS: BP 120/56; BP 134/72
[2018-10-08 20:00] VITALS: BP 137/56
[2018-10-09] VITALS: BP 115/55
[2018-10-09 06:28] LABS: INTERNATIONAL NORM RATIO 3.8 (2.0-3.5)
[2018-10-09 08:00] VITALS: BP 120/51
[2018-10-09 08:24] LABS: BASO % 0.3 % (0.0-1.0); EOS # 0.1 10*3/uL (0.0-0.4); EOS % 2.9 % (1.0-4.0); HEMATOCRIT 23.3 % (37.0-47.0); HEMOGLOBIN 7.5 g/dl (12.0-16.0); LYMPH # 0.8 10*3/uL (1.3-4.4); LYMPH % 24.9 % (27.0-41.0); MEAN CELL VOLUME 88.6 fl (81.0-99.0); MEAN CORPUSCULAR HGB 28.5 pg (27.0-31.0); MEAN CORPUSCULAR HGB CONC 32.2 g/dl (33.0-37.0); MEAN PLATELET VOLUME 10.5 fl (9.6-12.3); MONO # 0.4 10*3/uL (0.1-1.0); MONO % 13.7 % (3.0-9.0); NEUT # 1.8 10*3/uL (2.3-7.9); NEUT % 57.9 % (47.0-73.0); PLATELET COUNT AUTOMATED 235 10*3/uL (130-400); RED BLOOD COUNT 2.63 10*6/uL (4.10-5.10); WHITE BLOOD COUNT 3.1 10*3/uL (4.8-10.8)
[2018-10-09 08:36] LABS: ALBUMIN 2.7 gm/dl (3.1-4.5); CREATININE 1.25 mg/dL (0.55-1.02); POTASSIUM 3.7 mmol/L (3.5-5.1); TOTAL PROTEIN 7.3 gm/dL (6.4-8.2)
[2018-10-09 12:00] VITALS: BP 122/53
[2018-10-09 16:00] VITALS: BP 128/53
[2018-10-09 20:00] VITALS: BP 126/50
[2018-10-10] VITALS: BP 103/50
[2018-10-10 06:19] LABS: BASO % 0.4 % (0.0-1.0); EOS # 0.1 10*3/uL (0.0-0.4); EOS % 3.9 % (1.0-4.0); HEMATOCRIT 23.2 % (37.0-47.0); HEMOGLOBIN 7.3 g/dl (12.0-16.0); LYMPH # 0.8 10*3/uL (1.3-4.4); LYMPH % 27.2 % (27.0-41.0); MEAN CELL VOLUME 88.2 fl (81.0-99.0); MEAN CORPUSCULAR HGB 27.8 pg (27.0-31.0); MEAN CORPUSCULAR HGB CONC 31.5 g/dl (33.0-37.0); MONO # 0.5 10*3/uL (0.1-1.0); MONO % 16.3 % (3.0-9.0); NEUT # 1.5 10*3/uL (2.3-7.9); NEUT % 51.8 % (47.0-73.0); PLATELET COUNT AUTOMATED 196 10*3/uL (130-400); RED BLOOD COUNT 2.63 10*6/uL (4.10-5.10); RED CELL DISTRI WIDTH 14.9 % (0-14.5); WHITE BLOOD COUNT 2.8 10*3/uL (4.8-10.8)
[2018-10-10 06:39] LABS: INTERNATIONAL NORM RATIO 5.6 (2.0-3.5)
[2018-10-10 06:51] LABS: CREATININE 1.29 mg/dL (0.55-1.02); POTASSIUM 3.6 mmol/L (3.5-5.1)
[2018-10-10 08:00] VITALS: BP 126/52
[2018-10-10 12:00] VITALS: BP 158/98
[2018-10-10 16:00] VITALS: BP 124/54
[2018-10-10 20:00] VITALS: BP 116/49
[2018-10-11] VITALS: BP 115/41
[2018-10-11 06:50] LABS: BASO % 0.4 % (0.0-1.0); EOS # 0.1 10*3/uL (0.0-0.4); EOS % 3.8 % (1.0-4.0); HEMATOCRIT 23.2 % (37.0-47.0); HEMOGLOBIN 7.3 g/dl (12.0-16.0); LYMPH # 0.9 10*3/uL (1.3-4.4); MEAN CELL VOLUME 87.9 fl (81.0-99.0); MEAN CORPUSCULAR HGB 27.7 pg (27.0-31.0); MEAN CORPUSCULAR HGB CONC 31.5 g/dl (33.0-37.0); MEAN PLATELET VOLUME 9.2 fl (9.6-12.3); MONO # 0.4 10*3/uL (0.1-1.0); MONO % 16.5 % (3.0-9.0); NEUT # 1.2 10*3/uL (2.3-7.9); NEUT % 45.9 % (47.0-73.0); PLATELET COUNT AUTOMATED 209 10*3/uL (130-400); RED BLOOD COUNT 2.64 10*6/uL (4.10-5.10); RED CELL DISTRI WIDTH 15.1 % (0-14.5); WHITE BLOOD COUNT 2.6 10*3/uL (4.8-10.8)
[2018-10-11 07:08] LABS: CREATININE 1.31 mg/dL (0.55-1.02); POTASSIUM 3.4 mmol/L (3.5-5.1)
[2018-10-11 07:22] LABS: INTERNATIONAL NORM RATIO 4.2 (2.0-3.5)
[2018-10-11 08:00] VITALS: BP 121/51
[2018-10-11 12:00] VITALS: BP 111/87
[2018-10-11 16:00] VITALS: BP 118/63
[2018-10-11 16:31] LABS: BASO % 0.5 % (0.0-1.0); EOS # 0.1 10*3/uL (0.0-0.4); EOS % 2.1 % (1.0-4.0); HEMATOCRIT 23.8 % (37.0-47.0); HEMOGLOBIN 7.7 g/dl (12.0-16.0); LYMPH # 0.8 10*3/uL (1.3-4.4); LYMPH % 22.3 % (27.0-41.0); MEAN CELL VOLUME 87.8 fl (81.0-99.0); MEAN CORPUSCULAR HGB 28.4 pg (27.0-31.0); MEAN CORPUSCULAR HGB CONC 32.4 g/dl (33.0-37.0); MEAN PLATELET VOLUME 9.1 fl (9.6-12.3); MONO # 0.5 10*3/uL (0.1-1.0); MONO % 13.6 % (3.0-9.0); NEUT # 2.3 10*3/uL (2.3-7.9); PLATELET COUNT AUTOMATED 235 10*3/uL (130-400); RED BLOOD COUNT 2.71 10*6/uL (4.10-5.10); WHITE BLOOD COUNT 3.8 10*3/uL (4.8-10.8)
[2018-10-11 20:00] VITALS: BP 126/49
[2018-10-12] VITALS: BP 141/48
[2018-10-12 06:40] LABS: BASO % 0.6 % (0.0-1.0); EOS # 0.1 10*3/uL (0.0-0.4); EOS % 3.3 % (1.0-4.0); HEMATOCRIT 23.8 % (37.0-47.0); HEMOGLOBIN 7.4 g/dl (12.0-16.0); LYMPH # 0.9 10*3/uL (1.3-4.4); LYMPH % 27.6 % (27.0-41.0); MEAN CELL VOLUME 88.5 fl (81.0-99.0); MEAN CORPUSCULAR HGB 27.5 pg (27.0-31.0); MEAN CORPUSCULAR HGB CONC 31.1 g/dl (33.0-37.0); MEAN PLATELET VOLUME 9.7 fl (9.6-12.3); MONO # 0.6 10*3/uL (0.1-1.0); MONO % 17.2 % (3.0-9.0); NEUT # 1.7 10*3/uL (2.3-7.9); NEUT % 50.7 % (47.0-73.0); PLATELET COUNT AUTOMATED 242 10*3/uL (130-400); RED BLOOD COUNT 2.69 10*6/uL (4.10-5.10); RED CELL DISTRI WIDTH 15.2 % (0-14.5); WHITE BLOOD COUNT 3.4 10*3/uL (4.8-10.8)
[2018-10-12 06:53] LABS: CREATININE 1.24 mg/dL (0.55-1.02); POTASSIUM 3.8 mmol/L (3.5-5.1)
[2018-10-12 08:00] VITALS: BP 130/46
[2018-10-12 12:00] VITALS: BP 130/53
[2018-10-12 16:00] VITALS: BP 134/49
[2018-10-12 20:00] VITALS: BP 124/51
[2018-10-13] VITALS (7 sets, daily range): BP systolic 105–148; BP diastolic 51–95
[2018-10-13 06:27] LABS: BASO % 0.8 % (0.0-1.0); EOS # 0.1 10*3/uL (0.0-0.4); EOS % 3.3 % (1.0-4.0); HEMATOCRIT 21.6 % (37.0-47.0); HEMOGLOBIN 6.9 g/dl (12.0-16.0); LYMPH # 0.7 10*3/uL (1.3-4.4); LYMPH % 27.1 % (27.0-41.0); MEAN CELL VOLUME 87.8 fl (81.0-99.0); MEAN CORPUSCULAR HGB CONC 31.9 g/dl (33.0-37.0); MEAN PLATELET VOLUME 9.1 fl (9.6-12.3); MONO # 0.4 10*3/uL (0.1-1.0); MONO % 16.7 % (3.0-9.0); NEUT # 1.2 10*3/uL (2.3-7.9); NEUT % 51.3 % (47.0-73.0); PLATELET COUNT AUTOMATED 218 10*3/uL (130-400); RED BLOOD COUNT 2.46 10*6/uL (4.10-5.10); RED CELL DISTRI WIDTH 15.1 % (0-14.5); WHITE BLOOD COUNT 2.4 10*3/uL (4.8-10.8)
[2018-10-13 07:00] LABS: BUN 14 mg/dl (7-24); CHLORIDE 116 mmol/L (98-107); CREATININE 0.92 mg/dL (0.55-1.02); POTASSIUM 3.4 mmol/L (3.5-5.1); SODIUM 140 mmol/L (136-145)
[2018-10-13 07:05] LABS: ADENOVIRUS Negative (Negative); INFLUENZA B Negative (Negative); METAPNEUMOVIRUS Negative (Negative); PARAINFLUENZA 1 Negative (Negative); PARAINFLUENZA 2 Negative (Negative); PARAINFLUENZA 3 Negative (Negative); RHINOVIRUS Negative (Negative); RSV A Negative (Negative); RSV B Negative (Negative)
[2018-10-13 08:25] LABS: INTERNATIONAL NORM RATIO 1.9 (2.0-3.5)
[2018-10-13 16:40] LABS: BASO % 0.7 % (0.0-1.0); EOS # 0.1 10*3/uL (0.0-0.4); EOS % 2.2 % (1.0-4.0); LYMPH # 0.6 10*3/uL (1.3-4.4); LYMPH % 22.7 % (27.0-41.0); MEAN CELL VOLUME 88.6 fl (81.0-99.0); MEAN CORPUSCULAR HGB 28.8 pg (27.0-31.0); MEAN CORPUSCULAR HGB CONC 32.5 g/dl (33.0-37.0); MEAN PLATELET VOLUME 9.4 fl (9.6-12.3); MONO # 0.3 10*3/uL (0.1-1.0); MONO % 11.9 % (3.0-9.0); NEUT # 1.7 10*3/uL (2.3-7.9); NEUT % 62.1 % (47.0-73.0); PLATELET COUNT AUTOMATED 235 10*3/uL (130-400); RED BLOOD COUNT 3.16 10*6/uL (4.10-5.10); RED CELL DISTRI WIDTH 14.7 % (0-14.5); WHITE BLOOD COUNT 2.8 10*3/uL (4.8-10.8)
[2018-10-13 16:44] LABS: HEMOGLOBIN 9.1 g/dl (12.0-16.0)
[2018-10-13] MEDS ORDERED: SEPTDS PO (16:47)
[2018-10-15 09:06] LABS: INFLUENZA A Negative (Negative)
== END 2018-10-13 18:13 | disposition home or self-care (01) | DRG 177 ==
LOC: ED 17:12 → 5E 22:37 → EDHOLD 22:37 → 5E 23:24
PROVIDERS: Family Medicine; Internal Medicine; Internal Medicine Critical Care Medicine; Internal Medicine Nephrology; Nurse Practitioner Family; Student in an Organized Health Care Education/Training Program; ADMIT Internal Medicine
PROC: 30233N1 Transfusion of Nonautologous Red Blood Cells into Peripheral Vein, Percutaneous Approach (ICD-10-PCS; principal; 2018-10-13)
DX: J15.212 Pneumonia due to Methicillin resistant Staphylococcus aureus (principal); N17.0 Acute kidney failure with tubular necrosis; E44.1 Mild protein-calorie malnutrition; E87.2 Acidosis; J45.51 Severe persistent asthma with (acute) exacerbation; A08.4 Viral intestinal infection, unspecified; E86.0 Dehydration; J15.0 Pneumonia due to Klebsiella pneumoniae; E87.8 Other disorders of electrolyte and fluid balance, not elsewhere classified; E87.6 Hypokalemia; R73.9 Hyperglycemia, unspecified; J10.08 Influenza due to other identified influenza virus with other specified pneumonia; E66.9 Obesity, unspecified; M19.90 Unspecified osteoarthritis, unspecified site; E03.9 Hypothyroidism, unspecified; R91.1 Solitary pulmonary nodule; M35.00 Sjogren syndrome, unspecified; F41.1 Generalized anxiety disorder; D72.819 Decreased white blood cell count, unspecified; J41.0 Simple chronic bronchitis; K21.9 Gastro-esophageal reflux disease without esophagitis; J20.9 Acute bronchitis, unspecified; D63.8 Anemia in other chronic diseases classified elsewhere; I12.9 Hypertensive chronic kidney disease with stage 1 through stage 4 chronic kidney disease, or unspecified chronic kidney disease; N18.3 Chronic kidney disease, stage 3 (moderate); E78.5 Hyperlipidemia, unspecified; Z88.6 Allergy status to analgesic agent; Z86.718 Personal history of other venous thrombosis and embolism; Z88.1 Allergy status to other antibiotic agents; Z87.81 Personal history of (healed) traumatic fracture; Z98.49 Cataract extraction status, unspecified eye; Z82.49 Family history of ischemic heart disease and other diseases of the circulatory system; Z83.3 Family history of diabetes mellitus; Z82.61 Family history of arthritis; Z79.899 Other long term (current) drug therapy; Z79.01 Long term (current) use of anticoagulants; Z68.30 Body mass index [BMI] 30.0-30.9, adult

== ENCOUNTER → 2018-10-27 | Outpatient (CLI) | payer OTHER ==
[~2018-10-27] MED LIST changes: +ARTHRITIS PAIN650 M3 PO; +CRANBERRY500 M3 PO; +CYCLOBENZAPRINE5 M3 PO; +FLOVENT HFA12 G1 INH; +IRON325 M1 PO; +PENNSAID112 GM T; +RESTASIS1 EACH OP; +SEPTDS PO; +VENTOLIN 02.5 MG/3 M INH; +VITAMIN D31000 UNI1 PO
== END | disposition home or self-care (01) ==
LOC: RAD 09:58
DX: J15.0 Pneumonia due to Klebsiella pneumoniae (principal); I10 Essential (primary) hypertension; F17.200 Nicotine dependence, unspecified, uncomplicated

== ENCOUNTER → 2019-08-15 | Outpatient (CLI) | payer MEDICARE | END | disposition home or self-care (01) | LOC: CT 10:09 | DX: R91.8 Other nonspecific abnormal finding of lung field (principal); J98.4 Other disorders of lung ==

== ENCOUNTER → 2019-08-18 | Outpatient (CLI) | payer MEDICARE ==
[2019-08-18 15:31] LABS: BASO % 0.6 % (0.0-1.0); EOS # 0.1 10*3/uL (0.0-0.4); EOS % 2.1 % (1.0-4.0); HEMATOCRIT 36.2 % (37.0-47.0); HEMOGLOBIN 11.4 g/dl (12.0-16.0); LYMPH # 1.1 10*3/uL (1.3-4.4); LYMPH % 34.8 % (27.0-41.0); MEAN CELL VOLUME 92.8 fl (81.0-99.0); MEAN CORPUSCULAR HGB 29.2 pg (27.0-31.0); MEAN CORPUSCULAR HGB CONC 31.5 g/dl (33.0-37.0); MEAN PLATELET VOLUME 8.8 fl (9.6-12.3); MONO # 0.4 10*3/uL (0.1-1.0); MONO % 11.9 % (3.0-9.0); NEUT # 1.7 10*3/uL (2.3-7.9); NEUT % 50.3 % (47.0-73.0); PLATELET COUNT AUTOMATED 129 10*3/uL (130-400); RED CELL DISTRI WIDTH 13.8 % (0-14.5); WHITE BLOOD COUNT 3.3 10*3/uL (4.8-10.8)
== END | disposition home or self-care (01) ==
LOC: LAB 15:09
PROVIDERS: Internal Medicine
DX: I10 Essential (primary) hypertension (principal); R07.9 Chest pain, unspecified

== ENCOUNTER → 2019-08-26 | Outpatient (CLI) | payer MEDICARE ==
--- NOTE | 2019-08-26 10:37 | NUR ---
INFORMED CONSENT SIGNED FOR LEXISCAN STRESS TEST WITH DR. RODRIGUEZ. RESTING EKG NSR, HR 92, BP 140/84. PULSE OX 98% AND LUNGS CLEAR BILATERALLY. COMPLETED ONE MINUTE OF LEXISCAN PROTOCOL RECEIVING LEXISCAN 0.4MG OVER [address] CHANGES NOTED WITH NO ARRHYTHMIAS. PT C/O ABDOMINAL CRAMPING. LAST RECOVERY HR 113, BP 132/70. WAITING NUCLEAR SCANNING IN STABLE CONDITION.
== END | disposition home or self-care (01) ==
LOC: CARD 08-24 09:30
DX: R07.9 Chest pain, unspecified (principal); I10 Essential (primary) hypertension; R53.81 Other malaise

== ENCOUNTER → 2019-09-01 | Outpatient (CLI) | payer MEDICARE ==
[2019-09-01 11:13] LABS: INTERNATIONAL NORM RATIO 1.2 (2.0-3.5)
== END | disposition home or self-care (01) ==
LOC: LAB 10:23
PROVIDERS: Internal Medicine
DX: I48.91 Unspecified atrial fibrillation (principal)

== ENCOUNTER → 2019-09-07 | Outpatient (CLI) | payer MEDICARE | END | disposition home or self-care (01) | LOC: CARD 08:20 | DX: I51.7 Cardiomegaly (principal) ==

== ENCOUNTER → 2019-11-30 | Outpatient (CLI) | payer MEDICARE | END | disposition home or self-care (01) | LOC: CT 12:35 | DX: J84.10 Pulmonary fibrosis, unspecified (principal); R91.8 Other nonspecific abnormal finding of lung field; K76.89 Other specified diseases of liver ==

== ENCOUNTER → 2019-12-23 | Outpatient (CLI) | payer MEDICARE ==
[~2019-12-23] MED LIST changes: +XARE15TA PO
== END | disposition home or self-care (01) ==
LOC: RESCLI 04:12
DX: K21.9 Gastro-esophageal reflux disease without esophagitis (principal); I10 Essential (primary) hypertension; E53.8 Deficiency of other specified B group vitamins; J30.2 Other seasonal allergic rhinitis; J43.9 Emphysema, unspecified; D50.9 Iron deficiency anemia, unspecified; E55.9 Vitamin D deficiency, unspecified; E03.9 Hypothyroidism, unspecified; E78.2 Mixed hyperlipidemia; M19.90 Unspecified osteoarthritis, unspecified site; M35.04 Sjogren syndrome with tubulo-interstitial nephropathy; N28.9 Disorder of kidney and ureter, unspecified; Z88.8 Allergy status to other drugs, medicaments and biological substances; Z86.718 Personal history of other venous thrombosis and embolism; Z95.828 Presence of other vascular implants and grafts; Z79.899 Other long term (current) drug therapy

== ENCOUNTER 2020-01-06 20:02 | Inpatient (IN) | payer MEDICARE ==
[~2020-01-06] VITALS: Ht 149.8 cm; Wt 67.3 kg
[~2020-01-06 20:02] MED LIST changes: -XARE15TA PO
[2020-01-06 20:11] VITALS: BP 130/71
[2020-01-06 20:53] LABS: BASO % 0.4 % (0.0-1.0); EOS % 0.4 % (1.0-4.0); HEMATOCRIT 28.9 % (37.0-47.0); LYMPH # 1.2 10*3/uL (1.3-4.4); LYMPH % 21.6 % (27.0-41.0); MEAN CELL VOLUME 93.2 fl (81.0-99.0); MEAN CORPUSCULAR HGB 30.3 pg (27.0-31.0); MEAN CORPUSCULAR HGB CONC 32.5 g/dl (33.0-37.0); MEAN PLATELET VOLUME 9.4 fl (9.6-12.3); MONO # 0.5 10*3/uL (0.1-1.0); MONO % 9.4 % (3.0-9.0); NEUT # 3.8 10*3/uL (2.3-7.9); PLATELET COUNT AUTOMATED 154 10*3/uL (130-400); RED CELL DISTRI WIDTH 13.9 % (0-14.5); WHITE BLOOD COUNT 5.5 10*3/uL (4.8-10.8)
[2020-01-06 21:09] LABS: ALBUMIN 3.9 gm/dl (3.1-4.5); ALKALINE PHOSPHATASE 60 U/L (45-117); BUN 29 mg/dl (7-24); CHLORIDE 111 mmol/L (98-107); CREATININE 1.63 mg/dL (0.55-1.02); LIPASE 146 U/L (73-393); SGOT/AST 10 IU/L (3-35); SGPT/ALT 19 U/L (12-78); SODIUM 138 mmol/L (136-145); TOTAL PROTEIN 9.4 gm/dL (6.4-8.2)
[2020-01-06 21:13] LABS: ACT PARTIAL THROMBO TIME 32.1 SECONDS (20.0-32.1); INTERNATIONAL NORM RATIO 1.2 (2.0-3.5); TROPONIN I < 0.015 ng/ml (<0.045)
[2020-01-06 21:58] LABS: BILIRUBIN NEGATIVE (NEGATIVE); BLOOD TRACE-LYSED (NEGATIVE); CLARITY CLEAR (CLEAR); COLOR YELLOW (YELLOW); GLUCOSE NEGATIVE (NEGATIVE); KETONE NEGATIVE (NEGATIVE); LEUKO ESTERASE TRACE (NEGATIVE); NITRITE NEGATIVE (NEGATIVE); UROBILINOGEN 0.2 E.U./dl (0.2-1.0)
[2020-01-06 22:00] LABS: EPITHELIAL CELLS 51-100; RBC 0-2 rbc/hpf (0-2)
[2020-01-06 22:01] LABS: BACTERIA 2+; HYALINE CAST 16-20; MUCOUS TRACE
--- NOTE | 2020-01-06 23:55 | NUR ---
REPORT FROM [facility] ROUSSEAU
[2020-01-07 03:25] VITALS: BP 126/68
[2020-01-07 04:30] VITALS: BP 130/49
--- NOTE | 2020-01-07 04:30 | NUR ---
Time: 429 A 69 year old F admitted to 5E under services of MIHAI CABRERA DO. Pt. arrived via stretcher from ER. Chief complaint: DIVERTICULOSIS BELINDA UPTON
[2020-01-07] MEDS ORDERED: XARE15TA PO (04:54)
[2020-01-07 06:37] LABS: BASO % 0.2 % (0.0-1.0); EOS % 0.4 % (1.0-4.0); HEMATOCRIT 26.6 % (37.0-47.0); LYMPH # 1.5 10*3/uL (1.3-4.4); LYMPH % 29.6 % (27.0-41.0); MEAN CELL VOLUME 92.7 fl (81.0-99.0); MEAN CORPUSCULAR HGB 29.6 pg (27.0-31.0); MEAN PLATELET VOLUME 9.6 fl (9.6-12.3); MONO # 0.5 10*3/uL (0.1-1.0); MONO % 10.6 % (3.0-9.0); NEUT # 2.9 10*3/uL (2.3-7.9); NEUT % 58.8 % (47.0-73.0); PLATELET COUNT AUTOMATED 129 10*3/uL (130-400); RED BLOOD COUNT 2.87 10*6/uL (4.10-5.10); RED CELL DISTRI WIDTH 13.6 % (0-14.5); WHITE BLOOD COUNT 4.9 10*3/uL (4.8-10.8)
[2020-01-07 07:05] LABS: ALBUMIN 3.3 gm/dl (3.1-4.5); CHLORIDE 113 mmol/L (98-107); POTASSIUM 3.8 mmol/L (3.5-5.1); SODIUM 139 mmol/L (136-145)
[2020-01-07 07:16] LABS: ALKALINE PHOSPHATASE 55 U/L (45-117); BUN 22 mg/dl (7-24); CHOLESTEROL 127 mg/dL (<200); CREATININE 1.06 mg/dL (0.55-1.02); FREE T4 1.11 ng/dl (0.76-1.46); HDL CHOLESTEROL 41 mg/dl (40-60); LDL CHOLESTEROL 57 mg/dL (9-159); SGOT/AST 14 IU/L (3-35); SGPT/ALT 18 U/L (12-78); TOTAL PROTEIN 8.4 gm/dL (6.4-8.2); TRIGLYCERIDES 145 mg/dl (<150); VLDL CHOLESTEROL 29 mg/dL (6-40)
[2020-01-07 07:53] LABS: VITAMIN D, 25-HYDROXY 62.5 ng/mL (30-100)
[2020-01-07 08:00] VITALS: BP 145/51
--- NOTE | 2020-01-07 11:23 | NUR ---
Quantitative Consultant in to talk to patient. Patient states lives at [facility] with GRAND DAUGHTER. There are 12 steps in the home. Physician: SAVANNAH HANDLEY Pharmacy: [facility] services: NONE Patient's level of ADLs: INDEPENDENT Patient has working utilities: YES DME: NONE Follow-up physician's appointment after d/c: WILL BE MADE BY HOSPITALIST NURSE DIRECTOR ON DISCHARGE Does patient want to access PORTAL?: NO Discharge plan PT LIVES AT HOME WITH HER GRAND DAUGHTER AND IS INDEPENDENT IN HER CARE. DENIES SHE WILL HAVE ANY NEEDS ON DISCHARGE. PLAN IS TO RETURN HOME WHEN MEDICALLY STABLE. WILL CONTINUE TO FOLLOW. STATES HER DAUGHTER OR GRAND DAUGHTER WILL TAKE HER HOME. LORETTA BRANNON
[2020-01-07 12:00] VITALS: BP 139/60
[2020-01-07 16:00] VITALS: BP 134/66
[2020-01-07 20:00] VITALS: BP 137/59
[2020-01-08] VITALS: BP 138/55
[2020-01-08 08:00] VITALS: BP 132/56
--- NOTE | 2020-01-08 08:00 | NUR ---
PT IS SITTING UP IN BED, AWAKE, ALERT AND ORIENTED. PT C/O OF STOMACH CRAMPS AFTER BOWEL MOVEMENTS BUT HAS NO OTHER STATED COMPLAINTS. DENIES PAIN AT THIS TIME. RESPIRATIONS ARE EASY AND REGULAR. NO SOB NOTED AT REST. PT REPOSITIONS SELF AND IS ENCOURAGED TO DO SO. BED IN LOWEST LOCKED POSITION AND CALL LIGHT WITHIN REACH. WILL CONTINE TO MONITOR.
[2020-01-08 12:00] VITALS: BP 156/54
[2020-01-08 16:00] VITALS: BP 138/51
[2020-01-08 20:00] VITALS: BP 133/52
--- NOTE | 2020-01-08 23:25 | NUR ---
STAT EKG ORDERED PER PT C/O LT SIDE CHEST PAIN THAT IS "PRESSURE THEN CRAMPY" AFTER AMBULATING TO RR & STATES SHE HAS SOB WITH IT WELL. BP 160/72 HR 104 SPO2 98% ON ROOM AIR. DR MESA NOTIFIED.
[2020-01-08 23:49] LABS: BASO % 0.2 % (0.0-1.0); EOS % 0.7 % (1.0-4.0); LYMPH # 1.1 10*3/uL (1.3-4.4); LYMPH % 27.3 % (27.0-41.0); MEAN CELL VOLUME 92.7 fl (81.0-99.0); MEAN CORPUSCULAR HGB 30.1 pg (27.0-31.0); MEAN CORPUSCULAR HGB CONC 32.5 g/dl (33.0-37.0); MEAN PLATELET VOLUME 9.3 fl (9.6-12.3); MONO # 0.4 10*3/uL (0.1-1.0); MONO % 9.9 % (3.0-9.0); NEUT # 2.5 10*3/uL (2.3-7.9); NEUT % 61.7 % (47.0-73.0); PLATELET COUNT AUTOMATED 115 10*3/uL (130-400); RED BLOOD COUNT 2.59 10*6/uL (4.10-5.10); RED CELL DISTRI WIDTH 13.6 % (0-14.5)
[2020-01-09] VITALS: BP 160/72; BP 171/71
[2020-01-09 05:38] VITALS: BP 138/70
[2020-01-09 06:51] LABS: BASO % 0.2 % (0.0-1.0); LYMPH # 0.9 10*3/uL (1.3-4.4); LYMPH % 22.8 % (27.0-41.0); MEAN CELL VOLUME 90.6 fl (81.0-99.0); MEAN CORPUSCULAR HGB 29.4 pg (27.0-31.0); MEAN CORPUSCULAR HGB CONC 32.5 g/dl (33.0-37.0); MEAN PLATELET VOLUME 9.3 fl (9.6-12.3); MONO # 0.4 10*3/uL (0.1-1.0); MONO % 10.6 % (3.0-9.0); NEUT # 2.6 10*3/uL (2.3-7.9); NEUT % 65.2 % (47.0-73.0); PLATELET COUNT AUTOMATED 125 10*3/uL (130-400); RED BLOOD COUNT 2.65 10*6/uL (4.10-5.10); RED CELL DISTRI WIDTH 13.6 % (0-14.5)
[2020-01-09 07:14] LABS: BUN 9 mg/dl (7-24); CHLORIDE 114 mmol/L (98-107); CREATININE 0.91 mg/dL (0.55-1.02); POTASSIUM 3.5 mmol/L (3.5-5.1); SODIUM 140 mmol/L (136-145)
[2020-01-09 08:00] VITALS: BP 130/54
--- NOTE | 2020-01-09 08:27 | NUR ---
PT STATES SHE ONLY TAKES IRON SUPPLEMENT ONCE A WEEK AND NOT DAILY. DR. GOMEZ NOTIFIED AND ORDER CHANGED.
--- NOTE | 2020-01-09 09:26 | NUR ---
PT C/O OF NAUSEA AT THIS TIME. PRN ZOFRAN ADMINISTERED. WILL MONITOR.
--- NOTE | 2020-01-09 10:26 | NUR ---
PT ASLEEP. PRN ZOFRAN CONSIDERED EFFECTIVE.
[2020-01-09 12:00] VITALS: BP 127/50
--- NOTE | 2020-01-09 12:27 | NUR ---
PT CONTINUES TO DENY NEEDS ON DISCHARGED. WILL CONTINUE TO FOLLOW.
[2020-01-09] MEDS ORDERED: FLAGYL500 MG PO (14:28)
--- NOTE | 2020-01-09 17:45 | NUR ---
Discharge instructions reviewed with patient/family. Patient receptive and verbalizes understanding. Follow-up care arranged. Written instructions given to patient/family. KADEEM HERNANDEZ
== END 2020-01-09 18:53 | disposition home or self-care (01) | DRG 392 ==
LOC: ED 20:02 → EDHOLD 01-07 03:28 → 5E 01-07 03:28
PROVIDERS: Emergency Medicine Emergency Medical Services; Internal Medicine; Student in an Organized Health Care Education/Training Program; ADMIT Emergency Medicine
DX: K57.32 Diverticulitis of large intestine without perforation or abscess without bleeding (principal); D68.9 Coagulation defect, unspecified; J44.9 Chronic obstructive pulmonary disease, unspecified; M35.00 Sjogren syndrome, unspecified; E03.9 Hypothyroidism, unspecified; N18.3 Chronic kidney disease, stage 3 (moderate); R91.8 Other nonspecific abnormal finding of lung field; E78.5 Hyperlipidemia, unspecified; I12.9 Hypertensive chronic kidney disease with stage 1 through stage 4 chronic kidney disease, or unspecified chronic kidney disease; R00.0 Tachycardia, unspecified; E87.8 Other disorders of electrolyte and fluid balance, not elsewhere classified; R73.9 Hyperglycemia, unspecified; R82.71 Bacteriuria; F41.9 Anxiety disorder, unspecified; M19.90 Unspecified osteoarthritis, unspecified site; Z66 Do not resuscitate; Z51.5 Encounter for palliative care; E66.9 Obesity, unspecified; D63.8 Anemia in other chronic diseases classified elsewhere; Z88.5 Allergy status to narcotic agent; Z88.6 Allergy status to analgesic agent; Z88.1 Allergy status to other antibiotic agents; Z86.718 Personal history of other venous thrombosis and embolism; Z86.14 Personal history of Methicillin resistant Staphylococcus aureus infection; Z87.01 Personal history of pneumonia (recurrent); Z98.49 Cataract extraction status, unspecified eye; Z82.49 Family history of ischemic heart disease and other diseases of the circulatory system; Z83.3 Family history of diabetes mellitus; Z82.61 Family history of arthritis; Z83.49 Family history of other endocrine, nutritional and metabolic diseases; Z84.1 Family history of disorders of kidney and ureter; Z79.899 Other long term (current) drug therapy; Z79.01 Long term (current) use of anticoagulants; Z68.30 Body mass index [BMI] 30.0-30.9, adult

== ENCOUNTER → 2020-01-17 | Outpatient (CLI) | payer MEDICARE ==
[~2020-01-17] MED LIST changes: +XARE15TA PO
[2020-01-17 15:37] LABS: CREATININE 1.29 mg/dL (0.55-1.02)
== END | disposition home or self-care (01) ==
LOC: LAB 15:07
PROVIDERS: Internal Medicine Nephrology
DX: I12.9 Hypertensive chronic kidney disease with stage 1 through stage 4 chronic kidney disease, or unspecified chronic kidney disease (principal); N18.3 Chronic kidney disease, stage 3 (moderate); D63.1 Anemia in chronic kidney disease; E21.1 Secondary hyperparathyroidism, not elsewhere classified; E83.30 Disorder of phosphorus metabolism, unspecified; E83.50 Unspecified disorder of calcium metabolism

== ENCOUNTER → 2020-01-26 | Outpatient (CLI) | payer MEDICARE | END | disposition home or self-care (01) | LOC: RAD 01-25 09:00 → MAMMO 01-25 09:30 → RAD 12:43 | DX: Z12.31 Encounter for screening mammogram for malignant neoplasm of breast (principal); Z78.0 Asymptomatic menopausal state; Z13.820 Encounter for screening for osteoporosis ==

== ENCOUNTER → 2020-01-31 | Outpatient (CLI) | payer MEDICARE | END | disposition home or self-care (01) | LOC: RAD 01-26 13:30 | DX: Z12.31 Encounter for screening mammogram for malignant neoplasm of breast (principal); Z78.0 Asymptomatic menopausal state; Z13.820 Encounter for screening for osteoporosis ==

== ENCOUNTER → 2020-03-06 | Outpatient (CLI) | payer MEDICARE | END | disposition home or self-care (01) | LOC: CT 09:35 | DX: J84.10 Pulmonary fibrosis, unspecified (principal); R91.8 Other nonspecific abnormal finding of lung field ==

== ENCOUNTER 2020-05-12 18:50 | Emergency (ER) | payer MEDICARE ==
[~2020-05-12] VITALS: Ht 124.4 cm; Wt 66.7 kg
[2020-05-12] MEDS ORDERED: VOLTAREN100 GM T (21:08)
== END 2020-05-12 21:11 | disposition home or self-care (01) ==
LOC: ED 18:50
DX: M13.811 Other specified arthritis, right shoulder (principal); M79.605 Pain in left leg; Z88.8 Allergy status to other drugs, medicaments and biological substances; Z79.899 Other long term (current) drug therapy; Z88.5 Allergy status to narcotic agent

== ENCOUNTER → 2020-09-24 | Outpatient (CLI) | payer MEDICARE, SELFPAY ==
[~2020-09-24] MED LIST changes: +VOLTAREN100 GM T
== END | disposition home or self-care (01) ==
LOC: CT 05:06
PROVIDERS: ATTEND Internal Medicine Critical Care Medicine
DX: R91.1 Solitary pulmonary nodule (principal)

== ENCOUNTER → 2021-01-22 | Outpatient (CLI) | payer MEDICARE | END | disposition home or self-care (01) | LOC: CT 10:55 | PROVIDERS: ATTEND Internal Medicine Critical Care Medicine | DX: R91.8 Other nonspecific abnormal finding of lung field (principal); K80.80 Other cholelithiasis without obstruction; J45.40 Moderate persistent asthma, uncomplicated; J30.89 Other allergic rhinitis; Z87.891 Personal history of nicotine dependence; Z68.28 Body mass index [BMI] 28.0-28.9, adult ==

== ENCOUNTER → 2021-02-08 | Outpatient (CLI) | payer MEDICARE | END | disposition home or self-care (01) | LOC: RESCLI 01:06 | PROVIDERS: ATTEND Internal Medicine | DX: M35.04 Sjogren syndrome with tubulo-interstitial nephropathy (principal); J43.9 Emphysema, unspecified; I12.9 Hypertensive chronic kidney disease with stage 1 through stage 4 chronic kidney disease, or unspecified chronic kidney disease; N18.30 Chronic kidney disease, stage 3 unspecified; E03.9 Hypothyroidism, unspecified; E78.2 Mixed hyperlipidemia; K21.9 Gastro-esophageal reflux disease without esophagitis; M17.0 Bilateral primary osteoarthritis of knee; M19.90 Unspecified osteoarthritis, unspecified site; K57.32 Diverticulitis of large intestine without perforation or abscess without bleeding; I82.591 Chronic embolism and thrombosis of other specified deep vein of right lower extremity; D63.1 Anemia in chronic kidney disease; E53.8 Deficiency of other specified B group vitamins; J30.9 Allergic rhinitis, unspecified; E55.9 Vitamin D deficiency, unspecified; D50.9 Iron deficiency anemia, unspecified; R20.2 Paresthesia of skin; R91.1 Solitary pulmonary nodule; I83.813 Varicose veins of bilateral lower extremities with pain; Z79.01 Long term (current) use of anticoagulants; Z12.31 Encounter for screening mammogram for malignant neoplasm of breast; Z79.899 Other long term (current) drug therapy; Z98.890 Other specified postprocedural states ==

== ENCOUNTER → 2021-02-12 | Outpatient (CLI) | payer MEDICARE ==
[2021-02-12 11:40] LABS: BASO % 0.6 % (0.0-1.0); EOS % 1.2 % (1.0-4.0); HEMATOCRIT 31.6 % (37.0-47.0); LYMPH # 1.5 10*3/uL (1.3-4.4); LYMPH % 46.1 % (27.0-41.0); MEAN CELL VOLUME 92.9 fl (81.0-99.0); MEAN CORPUSCULAR HGB 29.7 pg (27.0-31.0); MEAN PLATELET VOLUME 9.4 fl (9.6-12.3); MONO # 0.4 10*3/uL (0.1-1.0); MONO % 11.5 % (3.0-9.0); NEUT # 1.3 10*3/uL (2.3-7.9); NEUT % 40.3 % (47.0-73.0); PLATELET COUNT AUTOMATED 121 10*3/uL (130-400); RED CELL DISTRI WIDTH 13.5 % (0-14.5); WHITE BLOOD COUNT 3.2 10*3/uL (4.8-10.8)
[2021-02-12 11:57] LABS: URIC ACID 5.3 mg/dL (2.6-6.0)
[2021-02-12 11:58] LABS: ALBUMIN 3.6 gm/dl (3.1-4.5); ALKALINE PHOSPHATASE 59 U/L (45-117); BUN 20 mg/dl (7-24); CHLORIDE 112 mmol/L (98-107); CHOLESTEROL 158 mg/dL (<200); CREATININE 1.06 mg/dL (0.55-1.02); LDL CHOLESTEROL 59 mg/dL (9-159); POTASSIUM 4.1 mmol/L (3.5-5.1); SGOT/AST 18 IU/L (3-35); SGPT/ALT 21 U/L (12-78); SODIUM 140 mmol/L (136-145); TOTAL PROTEIN 8.8 gm/dL (6.4-8.2); TRIGLYCERIDES 335 mg/dl (<150)
[2021-02-12 12:38] LABS: VITAMIN D, 25-HYDROXY 60.9 ng/mL (30-100)
[2021-02-12 16:53] LABS: BILIRUBIN 1+ (Negative); BLOOD Negative (Negative); CLARITY Cloudy (Clear); COLOR Dark Yellow (Yellow); GLUCOSE Negative (Negative); KETONE 1+ (Negative); LEUKO ESTERASE 1+ (Negative); NITRITE Negative (Negative); SPECIFIC GRAVITY >= 1.030 (1.001-1.030)
[2021-02-12 17:04] LABS: BACTERIA 2+; HYALINE CAST TNTC; RBC 0-2 rbc/hpf (0-2)
== END | disposition home or self-care (01) ==
LOC: LAB 11:12
PROVIDERS: Internal Medicine; Internal Medicine Nephrology; ATTEND Nurse Practitioner Primary Care
DX: I12.9 Hypertensive chronic kidney disease with stage 1 through stage 4 chronic kidney disease, or unspecified chronic kidney disease (principal); N18.9 Chronic kidney disease, unspecified; E03.9 Hypothyroidism, unspecified; N25.81 Secondary hyperparathyroidism of renal origin; J44.9 Chronic obstructive pulmonary disease, unspecified; M35.00 Sjogren syndrome, unspecified; E78.2 Mixed hyperlipidemia; E55.9 Vitamin D deficiency, unspecified; R20.2 Paresthesia of skin

== ENCOUNTER → 2021-02-14 | Outpatient (CLI) | payer MEDICARE | END | disposition home or self-care (01) | LOC: MAMMO 00:24 | PROVIDERS: ATTEND Internal Medicine | DX: Z12.31 Encounter for screening mammogram for malignant neoplasm of breast (principal); N64.89 Other specified disorders of breast ==

== ENCOUNTER → 2021-03-21 | Outpatient (CLI) | payer MEDICARE | END | disposition home or self-care (01) | LOC: MAMMO 12:22 | PROVIDERS: ATTEND Nurse Practitioner Primary Care | DX: R92.8 Other abnormal and inconclusive findings on diagnostic imaging of breast (principal) ==

== ENCOUNTER 2021-05-03 11:40 | Emergency (ER) | payer MEDICARE ==
[~2021-05-03] VITALS: Wt 54.4 kg
[2021-05-03 12:02] LABS: BASO % 0.6 % (0.0-1.0); EOS # 0.1 10*3/uL (0.0-0.4); EOS % 1.5 % (1.0-4.0); HEMATOCRIT 31.9 % (37.0-47.0); LYMPH # 1.4 10*3/uL (1.3-4.4); LYMPH % 44.6 % (27.0-41.0); MEAN CELL VOLUME 92.7 fl (81.0-99.0); MEAN CORPUSCULAR HGB 29.4 pg (27.0-31.0); MEAN CORPUSCULAR HGB CONC 31.7 g/dl (33.0-37.0); MEAN PLATELET VOLUME 9.8 fl (9.6-12.3); MONO # 0.3 10*3/uL (0.1-1.0); MONO % 10.5 % (3.0-9.0); NEUT # 1.4 10*3/uL (2.3-7.9); NEUT % 42.5 % (47.0-73.0); PLATELET COUNT AUTOMATED 134 10*3/uL (130-400); RED BLOOD COUNT 3.44 10*6/uL (4.10-5.10); RED CELL DISTRI WIDTH 13.6 % (0-14.5); WHITE BLOOD COUNT 3.2 10*3/uL (4.8-10.8)
[2021-05-03 12:19] LABS: ALBUMIN 3.5 gm/dl (3.1-4.5); ALKALINE PHOSPHATASE 63 U/L (45-117); BUN 25 mg/dl (7-24); CHLORIDE 113 mmol/L (98-107); CREATININE 1.31 mg/dL (0.55-1.02); POTASSIUM 4.3 mmol/L (3.5-5.1); SGOT/AST 31 IU/L (3-35); SGPT/ALT 26 U/L (12-78); SODIUM 139 mmol/L (136-145); TOTAL PROTEIN 9.4 gm/dL (6.4-8.2)
[2021-05-03 12:20] LABS: TROPONIN I < 0.015 ng/ml (<0.045)
[2021-05-03 12:47] LABS: ACT PARTIAL THROMBO TIME 23.9 SECONDS (20.0-32.1)
== END 2021-05-03 13:55 | disposition home or self-care (01) ==
LOC: ED 11:40
PROVIDERS: Family Medicine
DX: J44.9 Chronic obstructive pulmonary disease, unspecified (principal); R07.89 Other chest pain; Z88.5 Allergy status to narcotic agent; Z88.6 Allergy status to analgesic agent; Z88.1 Allergy status to other antibiotic agents; Z88.8 Allergy status to other drugs, medicaments and biological substances; Z79.899 Other long term (current) drug therapy; Z98.890 Other specified postprocedural states

== ENCOUNTER → 2021-05-03 | Outpatient (CLI) | payer MEDICARE | END | disposition home or self-care (01) | LOC: RESCLI 02:37 | PROVIDERS: ATTEND Internal Medicine | DX: I12.9 Hypertensive chronic kidney disease with stage 1 through stage 4 chronic kidney disease, or unspecified chronic kidney disease (principal); N18.30 Chronic kidney disease, stage 3 unspecified; D63.1 Anemia in chronic kidney disease; M35.04 Sjogren syndrome with tubulo-interstitial nephropathy; E78.2 Mixed hyperlipidemia; I20.8 Other forms of angina pectoris; M19.90 Unspecified osteoarthritis, unspecified site; E03.9 Hypothyroidism, unspecified; E55.9 Vitamin D deficiency, unspecified; J43.9 Emphysema, unspecified; J30.2 Other seasonal allergic rhinitis; J44.9 Chronic obstructive pulmonary disease, unspecified; K21.9 Gastro-esophageal reflux disease without esophagitis; Z86.718 Personal history of other venous thrombosis and embolism; Z88.8 Allergy status to other drugs, medicaments and biological substances; Z79.899 Other long term (current) drug therapy ==

== ENCOUNTER → 2021-08-15 | Outpatient (CLI) | payer MEDICARE | END | disposition home or self-care (01) | LOC: RAD 12:26 | PROVIDERS: ATTEND Nurse Practitioner Primary Care | DX: J98.11 Atelectasis (principal) ==

== ENCOUNTER → 2022-01-23 | Outpatient (CLI) | payer MEDICARE | END | disposition home or self-care (01) | LOC: MAMMO 12:48 | PROVIDERS: ATTEND Physician Assistant | DX: N63.20 Unspecified lump in the left breast, unspecified quadrant (principal); Z80.3 Family history of malignant neoplasm of breast; R92.8 Other abnormal and inconclusive findings on diagnostic imaging of breast ==

== ENCOUNTER → 2022-02-14 | Outpatient (CLI) | payer MEDICARE ==
[2022-02-14 12:35] LABS: BASO % 0.6 % (0.0-1.0); EOS # 0.1 10*3/uL (0.0-0.4); EOS % 1.9 % (1.0-4.0); HEMATOCRIT 31.5 % (37.0-47.0); LYMPH # 1.4 10*3/uL (1.3-4.4); LYMPH % 42.1 % (27.0-41.0); MEAN CORPUSCULAR HGB 29.2 pg (27.0-31.0); MEAN CORPUSCULAR HGB CONC 32.1 g/dl (33.0-37.0); MEAN PLATELET VOLUME 9.3 fl (9.6-12.3); MONO # 0.3 10*3/uL (0.1-1.0); NEUT # 1.5 10*3/uL (2.3-7.9); NEUT % 46.1 % (47.0-73.0); PLATELET COUNT AUTOMATED 113 10*3/uL (130-400); RED BLOOD COUNT 3.46 10*6/uL (4.10-5.10); RED CELL DISTRI WIDTH 14.1 % (0-14.5); WHITE BLOOD COUNT 3.2 10*3/uL (4.8-10.8)
[2022-02-14 12:52] LABS: CREATININE 1.21 mg/dL (0.55-1.02); POTASSIUM 3.9 mmol/L (3.5-5.1); TOTAL PROTEIN 8.9 gm/dL (6.4-8.2); URIC ACID 5.4 mg/dL (2.6-6.0)
== END | disposition home or self-care (01) ==
LOC: LAB 12:05
PROVIDERS: ATTEND Internal Medicine Nephrology
DX: I12.9 Hypertensive chronic kidney disease with stage 1 through stage 4 chronic kidney disease, or unspecified chronic kidney disease (principal); N18.31 Chronic kidney disease, stage 3a

== ENCOUNTER → 2022-04-11 | Outpatient (CLI) | payer MEDICARE ==
[~2022-04-11] MED LIST changes: +CYCLOSPORINE OP; +DOXAZOSIN MESYLA1 MG PO; +PILOCARPINE HCL5 MG PO; +ZYRTEC10 M2 PO
== END | disposition home or self-care (01) ==
LOC: CARD 00:54
PROVIDERS: ATTEND Internal Medicine Cardiovascular Disease
DX: R07.89 Other chest pain (principal); R06.02 Shortness of breath; R00.2 Palpitations

== ENCOUNTER → 2022-07-02 | Outpatient (CLI) | payer MEDICARE | END | disposition home or self-care (01) | LOC: RESCLI 14:31 | PROVIDERS: ATTEND Internal Medicine | DX: Z00.00 Encounter for general adult medical examination without abnormal findings (principal); I10 Essential (primary) hypertension; E03.9 Hypothyroidism, unspecified; E78.5 Hyperlipidemia, unspecified; E55.9 Vitamin D deficiency, unspecified; M35.04 Sjogren syndrome with tubulo-interstitial nephropathy; M17.12 Unilateral primary osteoarthritis, left knee; J43.9 Emphysema, unspecified; J30.2 Other seasonal allergic rhinitis; F17.210 Nicotine dependence, cigarettes, uncomplicated; K21.9 Gastro-esophageal reflux disease without esophagitis; Z88.8 Allergy status to other drugs, medicaments and biological substances; Z86.718 Personal history of other venous thrombosis and embolism; Z82.49 Family history of ischemic heart disease and other diseases of the circulatory system ==

== ENCOUNTER → 2022-07-30 | Outpatient (CLI) | payer MEDICARE | END | disposition home or self-care (01) | LOC: MAMMO 01:33 | PROVIDERS: ATTEND Physician Assistant | DX: N63.14 Unspecified lump in the right breast, lower inner quadrant (principal); R92.8 Other abnormal and inconclusive findings on diagnostic imaging of breast; R92.1 Mammographic calcification found on diagnostic imaging of breast ==

== ENCOUNTER → 2022-08-29 | Outpatient (CLI) | payer MEDICARE | END | disposition home or self-care (01) | LOC: CT 08-28 09:00 | PROVIDERS: ATTEND Physician Assistant | DX: K76.0 Fatty (change of) liver, not elsewhere classified (principal); K80.20 Calculus of gallbladder without cholecystitis without obstruction; K57.32 Diverticulitis of large intestine without perforation or abscess without bleeding; K42.9 Umbilical hernia without obstruction or gangrene; N26.1 Atrophy of kidney (terminal); R91.1 Solitary pulmonary nodule; I70.0 Atherosclerosis of aorta ==

== ENCOUNTER → 2022-09-26 | Outpatient (CLI) | payer MEDICARE | END | disposition home or self-care (01) | LOC: US 09-24 14:00 | PROVIDERS: ATTEND Physician Assistant | DX: I65.23 Occlusion and stenosis of bilateral carotid arteries (principal); H93.A9 Pulsatile tinnitus, unspecified ear ==

== ENCOUNTER → 2022-12-29 | Outpatient (CLI) | payer MEDICARE | END | disposition home or self-care (01) | LOC: RESCLI 02:26 | PROVIDERS: ATTEND Internal Medicine | DX: I82.591 Chronic embolism and thrombosis of other specified deep vein of right lower extremity (principal); I12.9 Hypertensive chronic kidney disease with stage 1 through stage 4 chronic kidney disease, or unspecified chronic kidney disease; N18.9 Chronic kidney disease, unspecified; J44.9 Chronic obstructive pulmonary disease, unspecified; Z79.899 Other long term (current) drug therapy ==

== ENCOUNTER → 2023-02-23 | Outpatient (CLI) | payer MEDICARE ==
[2023-02-23 15:53] LABS: BASO % 0.3 % (0.0-1.0); EOS # 0.1 10*3/uL (0.0-0.4); EOS % 1.8 % (1.0-4.0); HEMATOCRIT 29.4 % (37.0-47.0); LYMPH # 1.3 10*3/uL (1.3-4.4); LYMPH % 40.1 % (27.0-41.0); MEAN CELL VOLUME 91.6 fl (81.0-99.0); MEAN CORPUSCULAR HGB 29.6 pg (27.0-31.0); MEAN CORPUSCULAR HGB CONC 32.3 g/dl (33.0-37.0); MEAN PLATELET VOLUME 9.8 fl (9.6-12.3); MONO # 0.4 10*3/uL (0.1-1.0); MONO % 11.6 % (3.0-9.0); NEUT # 1.5 10*3/uL (2.3-7.9); NEUT % 45.9 % (47.0-73.0); PLATELET COUNT AUTOMATED 119 10*3/uL (130-400); RED BLOOD COUNT 3.21 10*6/uL (4.10-5.10); RED CELL DISTRI WIDTH 13.6 % (0-14.5); WHITE BLOOD COUNT 3.3 10*3/uL (4.8-10.8)
[2023-02-23 16:13] LABS: POTASSIUM 4.3 mmol/L (3.4-5.1); URIC ACID 7.3 mg/dL (3.1-7.8)
[2023-02-23 16:17] LABS: URINE CREATININE RANDOM 248.32 mg/dL
== END | disposition home or self-care (01) ==
LOC: LAB 15:06
PROVIDERS: ATTEND Internal Medicine Nephrology
DX: I12.9 Hypertensive chronic kidney disease with stage 1 through stage 4 chronic kidney disease, or unspecified chronic kidney disease (principal); N18.31 Chronic kidney disease, stage 3a; N25.81 Secondary hyperparathyroidism of renal origin; D63.1 Anemia in chronic kidney disease

== ENCOUNTER 2023-05-13 23:37 | Emergency (ER) | payer MEDICARE ==
[~2023-05-13] VITALS: Ht 162.5 cm; Wt 72.8 kg
[2023-05-14 00:20] LABS: BASO % 0.3 % (0.0-1.0); EOS # 0.1 10*3/uL (0.0-0.4); EOS % 2.2 % (1.0-4.0); HEMATOCRIT 27.2 % (37.0-47.0); LYMPH # 1.4 10*3/uL (1.3-4.4); LYMPH % 45.4 % (27.0-41.0); MEAN CELL VOLUME 90.7 fl (81.0-99.0); MEAN CORPUSCULAR HGB CONC 33.1 g/dl (33.0-37.0); MEAN PLATELET VOLUME 8.9 fl (9.6-12.3); MONO # 0.3 10*3/uL (0.1-1.0); MONO % 9.5 % (3.0-9.0); NEUT # 1.4 10*3/uL (2.3-7.9); NEUT % 42.6 % (47.0-73.0); PLATELET COUNT AUTOMATED 92 10*3/uL (130-400); RED CELL DISTRI WIDTH 13.8 % (0-14.5); WHITE BLOOD COUNT 3.2 10*3/uL (4.8-10.8)
[2023-05-14 00:32] LABS: ACT PARTIAL THROMBO TIME 30.6 SECONDS (20.0-32.1); INTERNATIONAL NORM RATIO 1.2 (2.0-3.5)
[2023-05-14 00:41] LABS: POTASSIUM 3.7 mmol/L (3.4-5.1); TOTAL PROTEIN 8.3 gm/dL (6.0-8.0)
[2023-05-14] MEDS ORDERED: AMOX-CLAV 875-1 EACH PO (02:17)
[2023-05-14] MEDS ORDERED: PREDNISONE20 M1 PO (02:17)
== END 2023-05-14 02:21 | disposition home or self-care (01) ==
LOC: ED 23:37
PROVIDERS: Internal Medicine
DX: J44.9 Chronic obstructive pulmonary disease, unspecified (principal); I10 Essential (primary) hypertension; D64.9 Anemia, unspecified; E78.5 Hyperlipidemia, unspecified; M19.90 Unspecified osteoarthritis, unspecified site; K21.9 Gastro-esophageal reflux disease without esophagitis; E78.00 Pure hypercholesterolemia, unspecified; Z88.5 Allergy status to narcotic agent; Z88.8 Allergy status to other drugs, medicaments and biological substances; Z88.1 Allergy status to other antibiotic agents; Z98.890 Other specified postprocedural states; Z20.822 Contact with and (suspected) exposure to COVID-19

== ENCOUNTER → 2023-06-10 | Outpatient (CLI) | payer MEDICARE ==
[~2023-06-10] MED LIST changes: +AMOX-CLAV 875-1 EACH PO; +PREDNISONE20 M1 PO
[2023-06-10 12:56] LABS: BASO % 0.4 % (0.0-1.0); EOS # 0.1 10*3/uL (0.0-0.4); EOS % 3.2 % (1.0-4.0); HEMATOCRIT 30.2 % (37.0-47.0); LYMPH # 0.9 10*3/uL (1.3-4.4); LYMPH % 32.9 % (27.0-41.0); MEAN CELL VOLUME 92.6 fl (81.0-99.0); MEAN CORPUSCULAR HGB 29.8 pg (27.0-31.0); MEAN CORPUSCULAR HGB CONC 32.1 g/dl (33.0-37.0); MEAN PLATELET VOLUME 9.4 fl (9.6-12.3); MONO # 0.4 10*3/uL (0.1-1.0); MONO % 13.4 % (3.0-9.0); NEUT # 1.4 10*3/uL (2.3-7.9); NEUT % 49.7 % (47.0-73.0); PLATELET COUNT AUTOMATED 141 10*3/uL (130-400); RED BLOOD COUNT 3.26 10*6/uL (4.10-5.10); RED CELL DISTRI WIDTH 13.7 % (0-14.5); WHITE BLOOD COUNT 2.8 10*3/uL (4.8-10.8)
[2023-06-10 13:30] LABS: POTASSIUM 4.2 mmol/L (3.4-5.1); TOTAL PROTEIN 7.6 gm/dL (6.0-8.0); URIC ACID 6.2 mg/dL (3.1-7.8)
== END | disposition home or self-care (01) ==
LOC: LAB 12:25
PROVIDERS: ATTEND Nurse Practitioner Adult Health
DX: I12.9 Hypertensive chronic kidney disease with stage 1 through stage 4 chronic kidney disease, or unspecified chronic kidney disease (principal); N18.31 Chronic kidney disease, stage 3a; D63.1 Anemia in chronic kidney disease; N25.81 Secondary hyperparathyroidism of renal origin

== ENCOUNTER → 2023-07-22 | Outpatient (CLI) | payer MEDICARE ==
[2023-07-22 13:56] LABS: BASO % 0.6 % (0.0-1.0); EOS # 0.1 10*3/uL (0.0-0.4); EOS % 1.7 % (1.0-4.0); HEMATOCRIT 31.8 % (37.0-47.0); LYMPH # 1.5 10*3/uL (1.3-4.4); LYMPH % 43.1 % (27.0-41.0); MEAN CELL VOLUME 91.4 fl (81.0-99.0); MEAN CORPUSCULAR HGB 28.7 pg (27.0-31.0); MEAN CORPUSCULAR HGB CONC 31.4 g/dl (33.0-37.0); MEAN PLATELET VOLUME 9.2 fl (9.6-12.3); MONO # 0.4 10*3/uL (0.1-1.0); MONO % 12.6 % (3.0-9.0); NEUT # 1.5 10*3/uL (2.3-7.9); NEUT % 41.7 % (47.0-73.0); PLATELET COUNT AUTOMATED 112 10*3/uL (130-400); RED BLOOD COUNT 3.48 10*6/uL (4.10-5.10); RED CELL DISTRI WIDTH 14.8 % (0-14.5); WHITE BLOOD COUNT 3.5 10*3/uL (4.8-10.8)
[2023-07-22 14:01] LABS: URINE CREATININE RANDOM 221.91 mg/dL
[2023-07-22 14:21] LABS: POTASSIUM 4.4 mmol/L (3.4-5.1); TOTAL PROTEIN 8.1 gm/dL (6.0-8.0); URIC ACID 6.1 mg/dL (3.1-7.8)
== END | disposition home or self-care (01) ==
LOC: LAB 13:25
PROVIDERS: ATTEND Internal Medicine Nephrology
DX: I12.9 Hypertensive chronic kidney disease with stage 1 through stage 4 chronic kidney disease, or unspecified chronic kidney disease (principal); N18.31 Chronic kidney disease, stage 3a; N25.81 Secondary hyperparathyroidism of renal origin; D63.1 Anemia in chronic kidney disease

== ENCOUNTER → 2023-10-30 | Outpatient (CLI) | payer MEDICARE ==
[2023-10-30 16:26] LABS: BASO % 0.7 % (0.0-1.0); HEMATOCRIT 32.9 % (37.0-47.0); LYMPH # 1.2 10*3/uL (1.3-4.4); LYMPH % 38.8 % (27.0-41.0); MEAN CELL VOLUME 90.9 fl (81.0-99.0); MEAN CORPUSCULAR HGB 28.5 pg (27.0-31.0); MEAN CORPUSCULAR HGB CONC 31.3 g/dl (33.0-37.0); MEAN PLATELET VOLUME 9.9 fl (9.6-12.3); MONO # 0.4 10*3/uL (0.1-1.0); MONO % 12.5 % (3.0-9.0); NEUT # 1.4 10*3/uL (2.3-7.9); NEUT % 46.7 % (47.0-73.0); PLATELET COUNT AUTOMATED 124 10*3/uL (130-400); RED BLOOD COUNT 3.62 10*6/uL (4.10-5.10); RED CELL DISTRI WIDTH 13.6 % (0-14.5)
[2023-10-30 17:04] LABS: POTASSIUM 4.5 mmol/L (3.4-5.1); TOTAL PROTEIN 8.5 gm/dL (6.0-8.0); URIC ACID 6.8 mg/dL (3.1-7.8)
[2023-10-30 18:19] LABS: URINE CREATININE RANDOM 270.64 mg/dL
== END | disposition home or self-care (01) ==
LOC: LAB 15:40
PROVIDERS: ATTEND Internal Medicine Nephrology
DX: I12.9 Hypertensive chronic kidney disease with stage 1 through stage 4 chronic kidney disease, or unspecified chronic kidney disease (principal); N18.32 Chronic kidney disease, stage 3b; D63.1 Anemia in chronic kidney disease

== ENCOUNTER → 2023-11-03 | Outpatient (CLI) | payer MEDICARE | END | disposition home or self-care (01) | LOC: MAMMO 02:33 | PROVIDERS: ATTEND Physician Assistant | DX: Z12.31 Encounter for screening mammogram for malignant neoplasm of breast (principal); N63.13 Unspecified lump in the right breast, lower outer quadrant ==

== ENCOUNTER → 2024-01-04 | Outpatient (CLI) | payer MEDICARE | END | disposition home or self-care (01) | LOC: RESCLI 01:24 | PROVIDERS: ATTEND Internal Medicine | DX: I10 Essential (primary) hypertension (principal); I82.591 Chronic embolism and thrombosis of other specified deep vein of right lower extremity; I20.89 Other forms of angina pectoris; Z00.00 Encounter for general adult medical examination without abnormal findings; M35.04 Sjogren syndrome with tubulo-interstitial nephropathy; E55.9 Vitamin D deficiency, unspecified; M17.12 Unilateral primary osteoarthritis, left knee; J43.9 Emphysema, unspecified; J44.9 Chronic obstructive pulmonary disease, unspecified; E78.2 Mixed hyperlipidemia; K21.9 Gastro-esophageal reflux disease without esophagitis; J30.2 Other seasonal allergic rhinitis; E03.9 Hypothyroidism, unspecified; Z88.8 Allergy status to other drugs, medicaments and biological substances; Z98.890 Other specified postprocedural states ==

== ENCOUNTER → 2024-01-28 | Outpatient (CLI) | payer MEDICARE ==
[2024-01-28 13:54] LABS: BASO % 0.4 % (0.0-1.0); EOS # 0.1 10*3/uL (0.0-0.4); EOS % 1.8 % (1.0-4.0); LYMPH # 1.1 10*3/uL (1.3-4.4); LYMPH % 38.7 % (27.0-41.0); MEAN CELL VOLUME 91.2 fl (81.0-99.0); MEAN CORPUSCULAR HGB 29.4 pg (27.0-31.0); MEAN CORPUSCULAR HGB CONC 32.3 g/dl (33.0-37.0); MEAN PLATELET VOLUME 9.6 fl (9.6-12.3); MONO # 0.3 10*3/uL (0.1-1.0); MONO % 11.7 % (3.0-9.0); NEUT # 1.3 10*3/uL (2.3-7.9); NEUT % 46.7 % (47.0-73.0); PLATELET COUNT AUTOMATED 113 10*3/uL (130-400); RED CELL DISTRI WIDTH 14.2 % (0-14.5); WHITE BLOOD COUNT 2.8 10*3/uL (4.8-10.8)
[2024-01-28 14:07] LABS: URINE CREATININE RANDOM 239.45 mg/dL
[2024-01-28 14:23] LABS: POTASSIUM 4.4 mmol/L (3.4-5.1); TOTAL PROTEIN 8.3 gm/dL (6.0-8.0); URIC ACID 6.1 mg/dL (3.1-7.8)
== END | disposition home or self-care (01) ==
LOC: LAB 13:21
PROVIDERS: ATTEND Nurse Practitioner Adult Health
DX: I12.9 Hypertensive chronic kidney disease with stage 1 through stage 4 chronic kidney disease, or unspecified chronic kidney disease (principal); N18.32 Chronic kidney disease, stage 3b

== ENCOUNTER → 2024-02-17 | Outpatient (CLI) | payer MEDICARE | END | disposition home or self-care (01) | LOC: CARD 02-16 13:00 | PROVIDERS: ATTEND Internal Medicine | DX: I08.0 Rheumatic disorders of both mitral and aortic valves (principal); R07.9 Chest pain, unspecified; R06.02 Shortness of breath ==

== ENCOUNTER 2024-05-12 00:38 | Emergency (ER) | payer MEDICARE ==
[~2024-05-12] VITALS: Ht 149.8 cm; Wt 74.8 kg
[2024-05-12 01:11] LABS: BASO % 0.6 % (0.0-1.0); EOS # 0.1 10*3/uL (0.0-0.4); EOS % 1.5 % (1.0-4.0); HEMATOCRIT 31.7 % (37.0-47.0); LYMPH # 1.4 10*3/uL (1.3-4.4); MEAN CELL VOLUME 94.9 fl (81.0-99.0); MEAN CORPUSCULAR HGB 29.3 pg (27.0-31.0); MEAN CORPUSCULAR HGB CONC 30.9 g/dl (33.0-37.0); MEAN PLATELET VOLUME 10.1 fl (9.6-12.3); MONO # 0.4 10*3/uL (0.1-1.0); MONO % 12.2 % (3.0-9.0); NEUT # 1.5 10*3/uL (2.3-7.9); NEUT % 44.4 % (47.0-73.0); PLATELET COUNT AUTOMATED 125 10*3/uL (130-400); RED BLOOD COUNT 3.34 10*6/uL (4.10-5.10); RED CELL DISTRI WIDTH 15.1 % (0-14.5); WHITE BLOOD COUNT 3.3 10*3/uL (4.8-10.8)
== END 2024-05-12 01:54 | disposition home or self-care (01) ==
LOC: ED 00:38
PROVIDERS: Internal Medicine
DX: K42.9 Umbilical hernia without obstruction or gangrene (principal); D61.818 Other pancytopenia; I10 Essential (primary) hypertension; J44.9 Chronic obstructive pulmonary disease, unspecified; D64.9 Anemia, unspecified; E78.5 Hyperlipidemia, unspecified; M19.90 Unspecified osteoarthritis, unspecified site; K21.9 Gastro-esophageal reflux disease without esophagitis; E78.00 Pure hypercholesterolemia, unspecified; Z88.5 Allergy status to narcotic agent; Z88.1 Allergy status to other antibiotic agents; Z88.8 Allergy status to other drugs, medicaments and biological substances; Z98.890 Other specified postprocedural states

== ENCOUNTER → 2024-09-02 | Outpatient (CLI) | payer MEDICARE ==
[2024-09-02 14:36] LABS: BASO % 0.3 % (0.0-1.0); EOS # 0.1 10*3/uL (0.0-0.4); EOS % 2.4 % (1.0-4.0); HEMATOCRIT 31.4 % (37.0-47.0); MEAN CELL VOLUME 92.6 fl (81.0-99.0); MEAN CORPUSCULAR HGB 28.9 pg (27.0-31.0); MEAN CORPUSCULAR HGB CONC 31.2 g/dl (33.0-37.0); MEAN PLATELET VOLUME 9.2 fl (9.6-12.3); MONO # 0.3 10*3/uL (0.1-1.0); MONO % 10.1 % (3.0-9.0); NEUT # 1.2 10*3/uL (2.3-7.9); PLATELET COUNT AUTOMATED 118 10*3/uL (130-400); RED BLOOD COUNT 3.39 10*6/uL (4.10-5.10); WHITE BLOOD COUNT 2.9 10*3/uL (4.8-10.8)
[2024-09-02 15:09] LABS: POTASSIUM 3.7 mmol/L (3.4-5.1); URIC ACID 5.8 mg/dL (3.1-7.8)
== END | disposition home or self-care (01) ==
LOC: LAB 14:01
PROVIDERS: ATTEND Internal Medicine Nephrology
DX: I12.9 Hypertensive chronic kidney disease with stage 1 through stage 4 chronic kidney disease, or unspecified chronic kidney disease (principal); N18.32 Chronic kidney disease, stage 3b

== ENCOUNTER → 2024-12-20 | Outpatient (CLI) | payer MEDICARE ==
[~2024-12-20] MED LIST changes: +Regadenoson 0.4 MG/5 ML SYR IV ONE; +Technetium Tc 99M Tetrofosmi 0.23 MG KIT IJ SCH
== END | disposition home or self-care (01) ==
LOC: CARD 02:06
PROVIDERS: ATTEND Internal Medicine Cardiovascular Disease
DX: I48.0 Paroxysmal atrial fibrillation (principal); R07.89 Other chest pain

== ENCOUNTER → 2025-05-08 | Outpatient (CLI) | payer MEDICARE ==
[~2025-05-08] MED LIST changes: -Regadenoson 0.4 MG/5 ML SYR IV ONE; -Technetium Tc 99M Tetrofosmi 0.23 MG KIT IJ SCH
== END | disposition home or self-care (01) ==
LOC: MAMMO 13:18
PROVIDERS: ATTEND Physician Assistant
DX: Z12.31 Encounter for screening mammogram for malignant neoplasm of breast (principal)

== ENCOUNTER → 2025-07-06 | Outpatient (CLI) | payer MEDICARE | END | disposition home or self-care (01) | LOC: CARD 12:31 | PROVIDERS: ATTEND Nurse Practitioner Family | DX: I08.2 Rheumatic disorders of both aortic and tricuspid valves (principal); I48.0 Paroxysmal atrial fibrillation; R07.89 Other chest pain; R00.2 Palpitations; R06.02 Shortness of breath ==